=== PATIENT | male | born 1955 | race Caucasian/White ===

== ENCOUNTER 2016-11-08 18:17 | Emergency (ER) | payer BC ==
[2016-11-08] MEDS ORDERED: METHYLPREDNISOLONE ACETATE 80 MG/ML VIAL IM ONE (18:37)
[2016-11-08] MEDS ORDERED: ALBUTEROL SULFATE 2.5 MG/0.5 ML VIAL.NEB IH ONE ×2 (18:37→18:38)
[2016-11-08] MEDS ORDERED: METHYLPREDNISOLONE ACETATE 80 MG/ML VIAL ONE (18:38)
--- OUTSIDE RECORDS SUMMARY | 2016-11-08 18:52 | XMS REPORT | Continuity of Care Document ---
:1955 Author Organization [facility] ([facility]) Address [address] [place] [address] Phone [phone] Care Team Providers Name Role Phone Lana Tapia Primary Care Provider [phone] Source Comments This disclosure is being made pursuant to the Care Everywhere program, applicable federal and state laws, and may not contain all informaitonavailable regarding this patient.[facility] ([facility]) Active Allergies and Adverse Reactions Not on File Current Medications Not on file Active Problems Not on file Social History Tobacco Use Types Packs/Day Years Used Date Never Assessed Plan of Care Health Maintenance Due Date Last Done Comments HCV Screening 1955 Hepatitis B Vaccine (1 of 3 - Primary Series) 1955 Tdap Vaccine 12/25/1967 Lipid Disorder Screening 1974 MMR Vaccine 1974 Td Vaccine 1974 Colonoscopy 2006 Prostate Cancer Screening 2006 Influenza Vaccine: Seasonal (#1) 01/14/2016 Results from Last 3 Months Not on file
[2016-11-08 19:22] VITALS: BP 121/89
--- NOTE | 2016-12-25 15:41 | ERNOTE ---
Dyspnea - Date Date of Service: 12/25/16 - General Presenting Symptoms: shortness of breath, difficulty of breathing Time Seen by Provider: 11/08/16 18:31 Source: patient, RN notes reviewed Exam Limitations: no limitations, clinical condition - Immun/Allergies/Home Medications Immunizations: IMMUNIZATION HX Immunizations Up to Date Yes History of Influenza Vaccine Yes Allergies/Adverse Reactions: Allergies No Known Allergies Allergy (Verified 11/15/13 00:03) Home Medications: HOME MEDICATIONS DULoxetine HCL [Cymbalta] 30 mg PO DAILY 06/23/13 [Last Taken Unknown] Hydroxyzine HCl 50 mg PO Q4H PRN 06/23/13 [Last Taken Unknown] Hyoscyamine Sulfate [Levsin] 0.375 mg PO BID 06/23/13 [Last Taken Unknown] Simvastatin 20 mg PO HS 06/23/13 [Last Taken Unknown] traMADol HCL [Tramadol HCl] 50 mg PO Q6H PRN 06/23/13 [Last Taken Unknown] Combivent Respimat Inhal [place] 10/09/14 [Last Taken Unknown] Ipratropium/Albuterol Sulfate [Combivent Respimat Inhal [place]] 1 puff IH QID #1 inhaler 11/08/16 [Last Taken Unknown] predniSONE [Prednisone] 1 tab PO TID #15 tab 11/08/16 [Last Taken Unknown] - History of Present Illness Severity: moderate 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: Reports: upper resp illness Frequency of episodes: Reports: frequent episodes Modifying Factors - (Improves): Reports: activity Modifying Factors (Worsens): Reports: activity Associated Symptoms-Dyspnea: Reports: fever/chills Review of Systems - Review of Systems Constitutional: Present: recent illness, fever EYE: Present: no symptoms reported ENT: Present: no symptoms reported Respiratory: Present: shortness of breath, cough Cardiology: Present: no symptoms reported Gastrointestinal/Abdominal: Present: no symptoms reported Genitourinary: Present: no symptoms reported Musculoskeletal: Present: no symptoms reported Skin: Present: no symptoms reported Neurological: Present: no symptoms reported Endocrine: Present: no symptoms reported Hematologic/Lymphatic: Present: no symptoms reported - Patient's Past Medical History Patient History - Medical: Anxiety, Arthritis, Chronic Pain, Fibromyalgia Patient History - Cardiac/Respiratory: COPD, Hyperlipidemia Patient History - Cancer: No Hx of Cancer Patient History - Surgical Procedures: Back Surgery, Cholecystectomy, Other Patient History - Other: None - Family History Family History:: no untoward family reactions to anesthesia, no family history of clotting disorders - Social History Living Situations: spouse Abuse History: No History of abuse Psych History: No pertinent hx, Hx of Anxiety Have you smoked in the past 12 months: Yes Do you dip or chew tobacco: No Alcohol Use: heavy Drug Use: none - Immunizations Immunizations Up to Date: Yes History of Influenza Vaccine: Yes Physical Exam - Physical Exam General Appearance: Present: alert, mild distress, anxious Head Exam: Present: normal inspection, no evidence of injury Eye Exam: Normal inspection: bilateral, PERRL: bilateral, EOMI: bilateral Ears, Nose, Throat: Present: normal ENT inspection Neck: Present: normal inspection, nontender Respiratory: Present: decreased breath sounds, rales, rhonchi, wheezing Cardiovascular/Chest: Present: regular rate, rhythm, no murmur, normal peripheral pulses Peripheral Pulses: N=norm/S=strong/W=weak/B=bound/A=absent: Carotid (R): Normal , Carotid (L): Normal, Radial (R): Normal, Radial (L): Normal, Femoral (R): Normal, Femoral (L): Normal, Dorsalis-pedis (R): Normal Gastrointestinal/Abdominal: Present: normal bowel sounds, nontender, nondistended, soft Male Genitals Exam: Present: normal genitalia Back Exam: Present: normal inspection, normal range of motion, no CVA tenderness Extremity Exam: Present: normal inspection, non-tender, normal range of motion, no edema Neurological Exam: Present: alert, oriented, normal mood/affect, no motor/ sensory deficits DTR: N=norm/NB=norm/brisk/A=abs/DD=dull/dimin/HC=hyperactive: Bicep (R): Normal , Bicep (L): Normal, Tricep (R): Normal, Tricep (L): Normal, Knee (R): Normal, Knee (L): Normal, Ankle (R): Normal, Ankle (L): Normal Skin Exam: Present: normal color, warm/dry Lymphatic Exam: Present: no adenopathy ED Progress - Results and Orders Patient's Lab Results:: I have reviewed the patient's lab results. - Vital Signs Patient's Vital Signs:: I have reviewed the patient's vital signs. - EKG EKG: other - copd exacerbation - Progress/Reassessment Chief Complaint: Dyspnea - Transfer of Care Expected Disposition: Discharge Departure Clinical Impression: COPD exacerbation - Departure Disposition: Home self-care Condition: Fair Instructions: Chronic Obstructive Pulmonary Disease Exacerbation, [id number] Referrals: Uvaldo Patel MD [Primary Care Provider] - Prescriptions: Ipratropium/Albuterol Sulfate [Combivent Respimat Inhal [place]] 1 puff IH QID #1 inhaler predniSONE [Prednisone] 1 tab PO TID #15 tab
== END 2016-11-08 19:00 | disposition home or self-care (01) ==
LOC: ER 18:17
DX: J44.1 Chronic obstructive pulmonary disease with (acute) exacerbation (principal); Z72.0 Tobacco use

== ENCOUNTER 2016-11-10 03:31 | Emergency (ER) | payer BC ==
[2016-11-10] MEDS ORDERED: ALBUTEROL SULFATE/IPRATROPIUM 3 ML NEBU IH ONE ×2 (03:43→03:47)
[2016-11-10] MEDS ORDERED: predniSONE 20 MG TABLET PO ONE (03:44)
--- NOTE | 2016-11-10 03:46 | ERNOTE ---
Dyspnea - Date Date of Service: 11/10/16 - General Presenting Symptoms: shortness of breath Source: patient, family Exam Limitations: no limitations - Immun/Allergies/Home Medications Immunizations: IMMUNIZATION HX Immunizations Up to Date Yes History of Influenza Vaccine Yes Allergies/Adverse Reactions: Allergies No Known Allergies Allergy (Verified 11/15/13 00:03) Home Medications: HOME MEDICATIONS DULoxetine HCL [Cymbalta] 30 mg PO DAILY 06/23/13 [Last Taken Unknown] Hydroxyzine HCl 50 mg PO Q4H PRN 06/23/13 [Last Taken Unknown] Hyoscyamine Sulfate [Levsin] 0.375 mg PO BID 06/23/13 [Last Taken Unknown] Simvastatin 20 mg PO HS 06/23/13 [Last Taken Unknown] traMADol HCL [Tramadol HCl] 50 mg PO Q6H PRN 06/23/13 [Last Taken Unknown] Combivent Respimat Inhal [place] 10/09/14 [Last Taken Unknown] Ipratropium/Albuterol Sulfate [Combivent Respimat Inhal [place]] 1 puff IH QID #1 inhaler 11/08/16 [Last Taken Unknown] predniSONE [Prednisone] 1 tab PO TID #15 tab 11/08/16 [Last Taken Unknown] - History of Present Illness Narrative: Patient evaluated at this emergency room for COPD exacerbation. He was placed on hand-held inhalers and oral steroids but is felt to pick these up to date. Patient has continued to smoke despite his COPD exacerbation and has noted increasing shortness of breath especially today. Patient denies associated fever or chills. He denies chest pain, diaphoresis, radiating to jaw arm or back pain nor nausea vomiting. 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 Frequency of episodes: Reports: occassional episodes Modifying Factors - (Improves): Reports: rest, other - patient does not have medications at home to help his condition Modifying Factors (Worsens): Reports: activity Associated Symptoms-Dyspnea: Reports: wheezing Prior Treatment: Reports: recently seen, treated by physician Review of Systems - Review of Systems Constitutional: Present: no symptoms reported EYE: Present: no symptoms reported ENT: Present: no symptoms reported Respiratory: Present: See HPI, shortness of breath, wheezing Cardiology: Present: no symptoms reported Gastrointestinal/Abdominal: Present: no symptoms reported Genitourinary: Present: no symptoms reported Musculoskeletal: Present: no symptoms reported Skin: Present: no symptoms reported Neurological: Present: no symptoms reported Endocrine: Present: no symptoms reported Hematologic/Lymphatic: Present: no symptoms reported Psych: Present: no symptoms reported - Mr. Gómez is getting better - Patient's Past Medical History Patient History - Medical: Anxiety, Arthritis, Chronic Pain, Fibromyalgia Patient History - Cardiac/Respiratory: COPD, Hyperlipidemia Patient History - Cancer: No Hx of Cancer Patient History - Surgical Procedures: Back Surgery, Cholecystectomy, Other Patient History - Other: None - Social History Living Situations: spouse Abuse History: No History of abuse Psych History: No pertinent hx, Hx of Anxiety Smoking Status: Current every day smoker Have you smoked in the past 12 months: Yes Do you dip or chew tobacco: No Alcohol Use: heavy Drug Use: none - Immunizations Immunizations Up to Date: Yes History of Influenza Vaccine: Yes Physical Exam - Physical Exam General Appearance: Present: wd/wn, alert, moderate distress Eye Exam: Normal inspection: bilateral - normal ophthalmologic exam, PERRL: bilateral, EOMI: bilateral Ears, Nose, Throat: Present: normal ENT inspection, normal pharynx Neck: Present: normal inspection, nontender Respiratory: Present: no accessory muscle use, decreased breath sounds, expiration (prolonged), rales, wheezing Cardiovascular/Chest: Present: regular rate, rhythm, no murmur, normal peripheral pulses Peripheral Pulses: N=norm/S=strong/W=weak/B=bound/A=absent: Carotid (R): Normal , Carotid (L): Normal, Radial (R): Normal, Radial (L): Normal Gastrointestinal/Abdominal: Present: normal bowel sounds, nontender, nondistended, soft, no organomegaly Rectal Exam: Present: deferred Back Exam: Present: normal inspection, normal range of motion, no CVA tenderness , no vertebral tenderness Extremity Exam: Present: normal inspection, non-tender - right shoulder pain with discharge O I note I've examined, normal range of motion, no edema Neurological Exam: Present: alert, oriented, normal mood/affect, no motor/ sensory deficits - against medical history of a foreign body initially have like dendrites Skin Exam: Present: normal color, warm/dry Lymphatic Exam: Present: no adenopathy ED Progress - Vital Signs Patient's Vital Signs:: I have reviewed the patient's vital signs. Vital Signs: Vital Signs 11/10/16 03:34 Temperature 36.4 C L Pulse Rate 67 Respiratory 22 H Rate Blood Pressure 189/107 O2 Sat by Pulse 98 Oximetry - X-Ray X-Ray #1 X-Ray: chest - no edema and/or consolidation noted. This is a preliminary read by myself. Interpretation: Interp. by me - Progress/Reassessment Chief Complaint: Dyspnea Departure Clinical Impression: Bronchitis, COPD exacerbation - Departure Disposition: Home self-care Additional Instructions: Will add doxycycline twice daily 10 days for suspected underlying bronchitis and aggravating factor. Please stop tobacco at this point as it will greatly aggravate her condition and your lung disease in the future. Please fill hand- held inhalers prescription previously provided to you. Referrals: Uvaldo Patel MD [Primary Care Provider] -
[2016-11-10] MEDS ORDERED: predniSONE 20 MG TABLET ONE (03:47)
--- OUTSIDE RECORDS SUMMARY | 2016-11-10 04:39 | XMS REPORT | Continuity of Care Document ---
:1955 Author Organization [facility] ([facility]) Address [address] [place] [address] Phone [phone] Care Team Providers Name Role Phone Lana Tapia Primary Care Provider [phone] Source Comments This disclosure is being made pursuant to the Care Everywhere program, applicable federal and state laws, and may not contain all informaitonavailable regarding this patient.[facility] ([facility]) Active Allergies and Adverse Reactions Not on [...]
[2016-11-10] MEDS ORDERED: DOXYCYCLINE HYCLATE 100 MG TABLET PO ONE (04:49)
[2016-11-10] MEDS ORDERED: DOXYCYCLINE HYCLATE 100 MG TABLET ONE (05:09)
[2016-11-10 05:12] VITALS: BP 150/80
== END 2016-11-10 05:20 | disposition home or self-care (01) ==
LOC: ER 03:31
DX: J40 Bronchitis, not specified as acute or chronic (principal); J44.1 Chronic obstructive pulmonary disease with (acute) exacerbation; F17.200 Nicotine dependence, unspecified, uncomplicated

== ENCOUNTER 2017-03-10 22:35 | Emergency (ER) | payer BC ==
[2017-03-10] MEDS ORDERED: ALBUTEROL SULFATE/IPRATROPIUM 3 ML NEBU IH ONE ×2 (23:04→23:10)
[2017-03-10] MEDS ORDERED: METHYLPREDNISOLONE SOD SUCC/PF 40 MG/ML VIAL IV ONE (23:05)
--- NOTE | 2017-03-10 23:08 | ERNOTE ---
Dyspnea - General Presenting Symptoms: shortness of breath Time Seen by Provider: 03/10/17 23:00 Source: patient Exam Limitations: no limitations - Immun/Allergies/Home Medications Immunizations: IMMUNIZATION HX Immunizations Up to Date Yes History of Influenza Vaccine No Hx Pneumococcal Vaccination Yes Allergies/Adverse Reactions: Allergies No Known Allergies Allergy (Verified 11/15/13 00:03) Home Medications: HOME MEDICATIONS DULoxetine HCL [Cymbalta] 30 mg PO DAILY 06/23/13 [Last Taken Unknown] Hydroxyzine HCl 50 mg PO Q4H PRN 06/23/13 [Last Taken Unknown] Hyoscyamine Sulfate [Levsin] 0.375 mg PO BID 06/23/13 [Last Taken Unknown] Simvastatin 20 mg PO HS 06/23/13 [Last Taken Unknown] traMADol HCL [Tramadol HCl] 50 mg PO Q6H PRN 06/23/13 [Last Taken Unknown] Combivent Respimat Inhal [place] 10/09/14 [Last Taken Unknown] Ipratropium/Albuterol Sulfate [Combivent Respimat Inhal [place]] 1 puff IH QID #1 inhaler 11/08/16 [Last Taken Unknown] Methylprednisolone [Medrol Dosepak] 4 mg PO DAILY #21 tab.ds.pk 03/11/17 [Last Taken Unknown] - History of Present Illness Narrative: Pt uses combivent BID daily. He has been more short of breath lately but denies increase in sputum or change in color or consistency Severity: moderate, severe 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: Reports: out of meds Frequency of episodes: Reports: frequent episodes Review of Systems - Review of Systems Constitutional: Absent: recent illness, fever Respiratory: Present: See HPI Cardiology: Absent: chest pain - Patient's Past Medical History Patient History - Medical: Anxiety, Arthritis, Chronic Pain, Fibromyalgia Patient History - Cardiac/Respiratory: COPD, Hyperlipidemia Patient History - Cancer: No Hx of Cancer Patient History - Surgical Procedures: Back Surgery, Cholecystectomy, Other, Orthopedic Patient History - Other: None - Social History Living Situations: spouse Abuse History: No History of abuse Psych History: No pertinent hx, Hx of Anxiety Smoking Status: Current every day smoker Have you smoked in the past 12 months: Yes Do you dip or chew tobacco: No Alcohol Use: heavy Drug Use: none - Immunizations Immunizations Up to Date: Yes Hx Pneumococcal Vaccination: Yes History of Influenza Vaccine: No Physical Exam - Physical Exam General Appearance: Present: wd/wn, alert, mild distress Head Exam: Present: normal inspection, no evidence of injury Eye Exam: Normal inspection: bilateral Neck: Present: normal inspection, supple Respiratory: Present: respiratory distress - mild, decreased breath sounds - throughout, wheezing - fine Cardiovascular/Chest: Present: regular rate, rhythm, no murmur, normal peripheral pulses Back Exam: Present: normal inspection, normal range of motion Extremity Exam: Present: normal inspection, no edema Neurological Exam: Present: alert, oriented, normal mood/affect, no motor/ sensory deficits Skin Exam: Present: normal color, warm/dry Lymphatic Exam: Present: no adenopathy ED Progress - Results and Orders Patient's Lab Results:: I have reviewed the patient's lab results. Results and Orders: Laboratory Tests 03/10/17 23:15 WBC 8.8 Hgb 15.3 Hct 44.7 Plt Count 330 - Vital Signs Patient's Vital Signs:: I have reviewed the patient's vital signs. Vital Signs: Vital Signs 03/10/17 22:40 Temperature 36.6 C Pulse Rate 94 Respiratory 18 Rate Blood Pressure 187/83 O2 Sat by Pulse 96 Oximetry - X-Ray X-Ray #1 X-Ray: chest Interpretation: Interp. by me X-ray Comments: mild hyperinflation, no infiltrate or effusion. - Progress/Reassessment Chief Complaint: Dyspnea Progress:: Improved Progress Note-Subjective: 03/11/17 00:07 Pt feels much better since nebulized treatment. Still a few low wheezes present. Will give another duoneb and D/C. Departure Clinical Impression: COPD exacerbation - Departure Disposition: Home Follow Up Needed Condition: Good Instructions: Chronic Obstructive Pulmonary Disease Exacerbation, [id number] Additional Instructions: Refill your inhaler in the morning as use as usual. Take prescription as directed. Follow up with your primary care doctor as needed. Prescriptions: Methylprednisolone [Medrol Dosepak] 4 mg PO DAILY #21 tab.ds.pk
[2017-03-10] MEDS ORDERED: METHYLPREDNISOLONE SOD SUCC/PF 40 MG/ML VIAL ONE (23:09)
[2017-03-10 23:20] LABS: Hematocrit 44.7 % (42.0-52.0); Hemoglobin 15.3 gm/dL (13.5-18.0); Mean Cell Volume 93.1 fl (78-100); Mean Corpuscular Hemoglobin 31.9 pg (27-31); Mean Corpuscular Hgb Conc 34.2 g/dl (32-36); Mean Platelet Volume 8.9 fl (6.0-9.5); Neutrophil # 4.1 K/mm3 (1.3-6.0); Neutrophil % 46.5 % (42-75.0); Platelet Count 330 K/mm3 (150-450); Red Cell Distribution Width 11.8 % (11.5-14.0); White Blood Count 8.8 K/mm3 (4.0-10.5)
[2017-03-11] MEDS ORDERED: ALBUTEROL SULFATE/IPRATROPIUM 3 ML NEBU IH ONE ×2 (00:02→00:10)
[2017-03-11 00:28] VITALS: BP 131/82
== END 2017-03-11 00:25 | disposition home or self-care (01) ==
LOC: ER 22:35
DX: J44.1 Chronic obstructive pulmonary disease with (acute) exacerbation (principal); F17.200 Nicotine dependence, unspecified, uncomplicated

== ENCOUNTER 2018-09-06 03:42 | Inpatient (IN) ==
[2018-09-06] MEDS ORDERED: ALBUTEROL SULFATE/IPRATROPIUM 3 ML NEBU IH ONE (04:19)
[2018-09-06] MEDS ORDERED: cefTRIAXone SODIUM 1,000 MG/100 ML BAG IV ONE (04:34)
[2018-09-06 04:40] LABS: Hematocrit 40.7 % (42.0-52.0); Mean Cell Volume 101.2 fl (78-100); Mean Corpuscular Hemoglobin 32.3 pg (27-31); Mean Corpuscular Hgb Conc 31.9 g/dl (32-36); Mean Platelet Volume 9.1 fl (8-11.3); Neutrophil # 9.8 K/mm3 (1.3-6.0); Neutrophil % 86.5 % (42-75.0); Platelet Count 225 K/mm3 (150-450); Red Blood Count 4.02 M/mm3 (4.7-6.0); Red Cell Distribution Width 12.9 % (11.5-14.0); White Blood Count 11.3 K/mm3 (4.0-10.5)
--- NOTE | 2018-09-06 04:42 | ERNOTE ---
Dyspnea - Date Date of Service: 09/06/18 - General Presenting Symptoms: shortness of breath, difficulty of breathing, wheezing Time Seen by Provider: 09/06/18 04:12 Source: patient, family, EMS, RN notes reviewed, old records Exam Limitations: clinical condition, other - Immun/Allergies/Home Medications Immunizations: IMMUNIZATION HX Immunizations Up to Date Yes History of Influenza Vaccine Yes Hx Pneumococcal Vaccination Yes Allergies/Adverse Reactions: Allergies No Known Allergies Allergy (Verified 09/06/18 10:01) Home Medications: HOME MEDICATIONS DULoxetine HCL [Cymbalta] 30 mg PO DAILY 06/23/13 [Last Taken Unknown] Hydroxyzine HCl 50 mg PO Q4H PRN 06/23/13 [Last Taken Unknown] traMADol HCL [Ultram] 50 mg PO QID PRN 07/25/18 [Last Taken Unknown] Albuterol Sulfate [Proair Hfa] 8.5 gm INHALATION Q6H PRN 09/06/18 [Last Taken Unknown] Pantoprazole Sodium 20 mg PO DAILY 09/06/18 [Last Taken Unknown] Terazosin HCl 5 mg PO HS 09/06/18 [Last Taken Unknown] Umeclidinium Brm/Vilanterol Tr [Anoro Ellipta 62.5-25 Mcg INH] 1 ea INHALATION DAILY 09/06/18 [Last Taken Unknown] Albuterol Sulfate/Ipratropium [Duoneb 2.5-0.5MG/3ML Soln] 3 ml INHALATION BID PRN #1 nebu 09/10/18 [Last Taken Unknown] Levofloxacin [Levaquin] 750 mg PO DAILY #3 tab 09/10/18 [Last Taken Unknown] predniSONE [Prednisone] 10 mg PO DAILY #20 tab.ds.pk 09/10/18 [Last Taken Unknown] - History of Present Illness Narrative: The patient is a 62-year-old male who is brought to the emergency department by EMS after he developed progressively increasing shortness of breath, associated with severe paroxysms of coughing. EMS found his oxygen saturation to be in the high 70% to low 80% on room air, when they first arrived at the patient's home. The patient had just gotten a nebulizer machine a few hours earlier, on Thursday morning, which had been prescribed by me when he came to the emergency department yesterday, complaining of cough and shortness of breath. He was so short of breath, and so hypoxic that he was not able to provide any reliable history to EMS personnel. Yesterday, the patient and his had bitterly complained that they had "never been able to get a nebulizer machine, despite several different doctors (ER, PCP, etc.) writing prescriptions for us." They seem to blame [facility] for this, but it sounds like there has just been bad communication persisting on multiple levels (between the patient, his , the physicians writing the prescriptions, and [facility]). So, I surveyed some of the administrative nursing staff here at [facility] yesterday, and they said that if I provided the patient with a written prescription that they could carry into [facility] on Thursday morning (yesterday a.m.) they could get a nebulizer machine for $40, and picker tender helper DuoNeb medication and all of the attendant supplies to do nebulizer treatments at home. Earlier today, the patient was able to picker tender helper a nebulizer machine and DuoNeb ampules at [facility], and the patient has been using DuoNeb by nebulizer all day today. Unfortunately, patient's respiratory status deteriorated to the point where he almost collapsed on his front porch "while trying to get a breath of fresh air" and his family had to call 911 to transport him to the hospital's emergency department for evaluation. Severity: severe Treatment SECURITY ATTENDANT: by patient, paramedics, oxygen, albuterol 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: Reports: upper resp illness Frequency of episodes: Reports: occassional episodes Modifying Factors - (Improves): Reports: albuterol, oxygen Modifying Factors (Worsens): Reports: activity, coughing, lying down Associated Symptoms-Dyspnea: Reports: chest pain/discomfort, cough, wheezing, weakness, anxiety Prior Treatment: Reports: recently seen, treated by physician. Denies: currently on antibiotics Review of Systems - Review of Systems Constitutional: Present: recent illness, weakness, fatigue, malaise EYE: Present: no symptoms reported ENT: Present: nose congestion, sore throat Respiratory: Present: See HPI, shortness of breath, cough, orthopnea, wheezing Cardiology: Present: chest pain Gastrointestinal/Abdominal: Present: See HPI Genitourinary: Present: no symptoms reported Musculoskeletal: Present: no symptoms reported Skin: Present: no symptoms reported Neurological: Present: anxiety, dizziness/light-headedness Endocrine: Present: no symptoms reported Hematologic/Lymphatic: Present: no symptoms reported Psych: Present: anxiety Medical History (Updated 09/10/18 @ 09:53 by Ottoniel Anglin MD) COPD (chronic obstructive pulmonary disease) Surgical History: Surgical History (Updated 09/10/18 @ 09:53 by Ottoniel Anglin MD) History of cholecystectomy History of fusion of cervical spine History of lumbar surgery History of shoulder surgery Family History: Family History (Updated 09/04/18 @ 22:32 by Luiza Garcia RN) Other No pertinent family history Social History: Preferred Language Palestinian Smoking Status Current every day smoker Abuse History No History of abuse Psych History No pertinent hx,Hx of Anxiety Alcohol Use heavy Drug Use none No Social History Section defined Physical Exam - Physical Exam General Appearance: Present: alert, severe distress, anxious, lethargic Head Exam: Present: normal inspection, no evidence of injury, no tenderness w palpation. Absent: active bleeding, Stover's Sign, contusions, ecchymosis, raccoon eyes, swelling, tenderness Eye Exam: Normal inspection: bilateral, PERRL: bilateral, EOMI: bilateral Ears, Nose, Throat: Present: normal except -, nasal congestion, pharyngeal erythema, dry mucous membranes. Absent: tonsillar exudate Neck: Present: normal inspection, nontender, supple, full range of motion. Absent: lymphadenopathy (R), lymphadenopathy (L) Respiratory: Present: chest tenderness, respiratory distress, accessory muscle use, decreased breath sounds, expiration (prolonged), rales, rhonchi, wheezing. Absent: stridor, pleural rub Cardiovascular/Chest: Present: regular rate, rhythm, no murmur, normal peripheral pulses Gastrointestinal/Abdominal: Present: normal bowel sounds, nontender, nondistended, soft. Absent: distended Back Exam: Present: normal inspection, normal range of motion, no CVA tenderness, no vertebral tenderness Extremity Exam: Present: normal inspection, normal except -, non-tender, normal range of motion, no edema Neurological Exam: Present: oriented, no motor/sensory deficits, 3d artist II-XII nml as tested, other. Absent: normal mood/affect, facial droop Skin Exam: Present: cool/dry, pallor. Absent: skin rash Lymphatic Exam: Present: no adenopathy Progress - Results and Orders Patient's Lab Results:: I have reviewed the patient's lab results. - Vital Signs Patient's Vital Signs:: I have reviewed the patient's vital signs. Vital Signs: Vital Signs 09/06/18 03:46 Temperature 37.0 C Pulse Rate 127 H Respiratory Rate 21 H Blood Pressure 130/63 O2 Sat by Pulse Oximetry 99 - EKG EKG #1 EKG: supraventricular tachycardia, nonspecific ST T wave changes EKG read: Reviewed by me EKG Comments: EKG done shortly after admission to the emergency department showed a sinus tachycardia with rate of 129 no evidence of any ectopy there is some diffuse nonspecific ST-T and T wave changes that are not diagnostic of ischemia. - X-Ray X-Ray #1 X-Ray: chest Interpretation: Reviewed by me X-ray Comments: 1 view AP portable chest shows hyperinflation of the lungs with flattening of the hemidiaphragms, both consistent with air trapping, with some haziness at the left lower heart border, which appears to be consistent with a left lower lobe pneumonitis. There is also some platelike atelectasis seen at the right lower hemidiaphragm. - Progress/Reassessment Chief Complaint: Dyspnea Progress:: Improved Plan - Plan Plan: The patient arrived in the emergency department by EMS in acute respiratory distress, and appeared to be in impending respiratory failure. I considered putting the patient on BiPAP but because of his khalil and generalized agitation I went ahead with nebulizer treatments as being less invasive and less provocative to his fragile emotional state. The patient improved somewhat, and oxygen saturations were able to be maintained in the 92-95% range with 4 L of nasal cannula or a simple facemask. Early during his stay however he became acutely agitated again, tore off his mask and monitoring leads, sat up and swung his legs over the edge of the bed, appearing as though he wanted to try to get up and walk out of the emergency department. He appeared delirious, not able to focus and not interacting or communicating appropriately at this time. I gave the patient 1 mg of lorazepam IV which calmed him down somewhat, but he was still fairly agitated and attempting to wrestle with his family and ED staff that were trying to keep him on the gurney. I then gave him 1 mg of morphine s ulfate IV and he calmed down considerably, at which point we decided to put him into a reclining Charisse-type chair, rather than trying to keep him on top of the ED gurney, which she had almost fallen off of repea wastedly is. The patient had another outburst of agitation less than an hour later, and I treated this with 2 mg of morphine sulfate IV, which finally got him to settle down and go to sleep. Because of the dramatic deterioration in the patient's condition over the past 24 hours, I was very concerned about the possibility of an acute bronchitis, or early pneumonitis that might be a precursor to sepsis. I gave the patient 1 g (1000 mg) of Rocephin, and 500 mg of azithromycin IV. The patient tolerated both of those antibiotics well. By this time it was almost 7:00 in the morning and I spoke with Dr. Anglin, an rfid specialist who was on-call for unattached hospital admissions. Dr. Agnlin agreed with the patient being admitted, requested he be sent to [facility] with telemetry, and I wrote some holding orders to get the patient transferred to the inpatient setting so that Dr. Anglin could see him, and right the rest of his admitting orders. The patient was in stable and improved condition at the time of his transfer from the ED to the inpatient setting on [facility] with telemetry. Departure Clinical Impression: COPD exacerbation Asthmatic bronchitis with acute exacerbation Qualifiers: Asthma severity: unspecified severity Asthma persistence: unspecified Qualified Code(s): J45.901 - Unspecified asthma with (acute) exacerbation - Departure Disposition: Short Term Hospital Inpatient Condition: Stable
[2018-09-06] MEDS ORDERED: LORazepam 2 MG/ML DISP.SYRIN ONE (04:52)
[2018-09-06] MEDS ORDERED: MORPHINE SULFATE 2 MG/ML DISP.SYRIN ONE (04:57)
[2018-09-06] MEDS ORDERED: ALBUTEROL SULFATE 2.5 MG/0.5 ML VIAL.NEB IH ONE ×2 (04:59→05:01)
[2018-09-06 05:00] LABS: ALT 20 U/L (19-67); AST 21 U/L (0-48); Albumin * 3.4 gm/dl (3.4-5.0); Alkaline Phosphatase * 72 U/L (50-170); BNP * 339 pg/mL (5-175); BUN/Creatinine Ratio 14.5 (9.0-21.6); Bilirubin, Total 0.5 mg/dL (0.0-1.1); Blood Urea Nitrogen 16 mg/dL (6-23); Calcium * 8.8 mg/dL (7.9-10.9); Carbon Dioxide 27.6 mmol/L (24-32.6); Chloride 104 mmol/L (97-106); Glucose * 142 mg/dL (70-110); Potassium 3.6 mmol/L (3.4-4.6); Sodium 142 mmol/L (132-142); Total Protein 6.7 gm/dL (6.2-8.2)
[2018-09-06] MEDS ORDERED: NORMAL SALINE 1,000 ML IV ONE (05:00)
[2018-09-06] MEDS ORDERED: AZITHROMYCIN 500 MG in DEXTROSE 5 % IN WATER 250 ML IV ONE ×2 (05:00)
[2018-09-06 05:11] LABS: Troponin I Less than 0.017 ng/mL (0.00-0.10)
[2018-09-06] MEDS ORDERED: LORazepam 2 MG/ML DISP.SYRIN IV ONE (05:16)
[2018-09-06] MEDS ORDERED: MORPHINE SULFATE 2 MG/ML DISP.SYRIN IV ONE ×2 (05:16→05:57)
[2018-09-06] MEDS ORDERED: ACETAMINOPHEN 1,000 MG/100 ML BTL IV ONE (07:03)
[2018-09-06] MEDS ORDERED: ALBUTEROL SULFATE/IPRATROPIUM 3 ML NEBU IH SCH (08:45)
[2018-09-06] MEDS ORDERED: METHYLPREDNISOLONE SOD SUCC/PF 125 MG/2 ML VIAL IV ONE (08:45)
[2018-09-06] MEDS ORDERED: METHYLPREDNISOLONE SOD SUCC/PF 40 MG/ML VIAL IV SCH ×2 (09:15→15:00)
[2018-09-06] MEDS: NORMAL SALINE 1,000 ML IV PRN ×2 (09:45→18:25)
[2018-09-06] MEDS: ALBUTEROL SULFATE/IPRATROPIUM 3 ML NEBU IH SCH ×3 (10:13→18:11)
[2018-09-06] MEDS: ALBUTEROL SULFATE 2.5 MG/0.5 ML VIAL.NEB IH PRN ×2 (10:15→13:15)
[2018-09-06] MEDS: METHYLPREDNISOLONE SOD SUCC/PF 40 MG/ML VIAL IV SCH ×3 (10:15→21:05)
--- NOTE | 2018-09-06 17:11 | HP ---
Chief Complaint - Chief Complaint Date of Service: 09/06/18 Time of Service: 16:58 Chief Complaint: shortness of breath History of Present Illness: Ghulam Stone, is a 62 year old white male with PMH of COPD. Cervical spone fusion, who admited on 09/06/2018 for increase shortness of breath. For the last 1 week, he had been having cough, productive of yellowish phlegm, associated with wheezing and shortness of breath. He thinks he could have had fever and chills but is not documented. He was seen in our ED and was given decadron and discharged on Duoneb. EMS was called today because of worsening of his SOB, wheezing and coughing. He had been having chest wall pain increased with coughing. EMS documented O2 saturations in the 70's to low 80's on room air ewa they got to his house. He was so SOB that he could not finish his sentences and was not able to provide a history to the EMS. His WBC was 11.2, and his troponin was less than 0.017. His EKG showed sinus tachycardia with nonspecific ST-T wave changes. His CXR showed diffuse hyperinflation with flattening of the hemidiaphragm. He wears O2 3 L only at night but does not wear it in the daytime as he goes to work at [employer]. He says this is 1st admission for the year but has had 2-3 admissions a year in the past. He denies intubation in the past. The patient was put on o2 and started on breathing treatment, IV antibiotics and IV solumedrol. He was admitted for further treatment. Medical History (Last Reviewed 09/06/18 @ 10:01 by Marzena Tatum RN) COPD (chronic obstructive pulmonary disease) Surgical History: Surgical History (Last Reviewed 09/06/18 @ 10:01 by Marzena Tatum RN) History of cholecystectomy History of fusion of cervical spine History of lumbar surgery History of shoulder surgery Family History: Family History (Last Reviewed 09/06/18 @ 10:01 by Marzena Tatum RN) Other No pertinent family history Social History: Patient Lives/Resources Home Utilized Preferred Language Ethiopian Smoking Status Current every day smoker Have you smoked in the past 12 Yes months Do you dip or chew tobacco No Abuse History No History of abuse Psych History No pertinent hx,Hx of Anxiety Alcohol Use heavy Drug Use none No Social History Section defined Review Of Systems (GEN) - Review of Systems Generalized/Overall Review: Present: Chills - not sure, Fever - not sure EENTM: Absent: Blurred Vision Respiratory: Present: Cough, Shortness of Breath, Wheezing Cardiac: Present: Chest Pain. Absent: Edema, Palpitations Abdominal: Absent: Nausea, Vomiting Genitourinary: Absent: Urgency, Frequency Musculoskeletal: Present: Joint Pain Neurological: Absent: Headache, Anxiety, Depressed Skin: Absent: Rash Endocrine: Absent: Intolerance to Cold, Intolerance to Heat Immunizations: IMMUNIZATION HX Immunizations Up to Date Yes History of Influenza Vaccine Yes Hx Pneumococcal Vaccination Yes Allergies/Adverse Reactions: Allergies Allergy/AdvReac Type Severity Reaction Status Date / Time No Known Allergies Allergy Verified 09/06/18 10:01 Home Medications: HOME MEDICATIONS DULoxetine HCL [Cymbalta] 30 mg PO DAILY 06/23/13 [Last Taken Unknown] Hydroxyzine HCl 50 mg PO Q4H PRN 06/23/13 [Last Taken Unknown] traMADol HCL [Ultram] 50 mg PO QID PRN 07/25/18 [Last Taken Unknown] Albuterol Sulfate [Proair Hfa] 8.5 gm INHALATION Q6H PRN 09/06/18 [Last Taken Unknown] Fluticasone/Salmeterol [Advair Hfa 230-21 Mcg Inhaler] 8 gm INHALATION BID 09/06/18 [Last Taken Unknown] Pantoprazole Sodium 20 mg PO DAILY 09/06/18 [Last Taken Unknown] Terazosin HCl 5 mg PO HS 09/06/18 [Last Taken Unknown] Umeclidinium Brm/Vilanterol Tr [Anoro Ellipta 62.5-25 Mcg INH] 1 ea INHALATION DAILY 09/06/18 [Last Taken Unknown] Exam - Exam Vital Signs: Vital Signs - Last Taken Temp 37.0 C 09/06/18 15:56 Pulse 207 H 09/06/18 15:56 Resp 20 09/06/18 15:56 BP 138/79 09/06/18 15:56 Pulse Ox 95 09/06/18 15:56 Constitutional: Present: Alert, Oriented x3, Cooperative ENT Exam: Present: hearing grossly normal Eye Exam: bilateral eye: normal inspection, PERRL, EOMI Neck: Present: supple Respiratory: Present: decreased breath sounds, wheezing. Absent: No rales Cardiovascular/Chest: Present: regular rate, rhythm, no JVD, no murmur Abdomen: Present: Normal bowel sounds, soft, nontender, nondistended Extremity: Present: no pedal edema, no calf tenderness Diagnostic Studies: Abnormal Lab Results 09/06/18 09/06/18 09/06/18 Range/Units 04: 04:35 04:35 WBC 11.3 H (4.0-10.5) K/mm3 RBC 4.02 L (4.7-6.0) M/mm3 Hgb 13.0 L (13.5-18.0) gm/dL Hct 40.7 L (42.0-52.0) % MCV 101.2 H (78-100) fl MCH 32.3 H (27-31) pg MCHC 31.9 L (32-36) g/dl Neutrophils % 86.5 H (42-75.0) % Lymphocytes % 5.9 L (20-51) % Neutrophils # 9.8 H (1.3-6.0) K/mm3 Lymphocytes # 0.66 L (1.5-3.5) k/mm3 pO2 64.2 L (83.0-108.0) mmHg Total CO2 24.9 H (19.0-24.0) mmol/L ABG O2 Sat (Measured) 92.2 L (94.0-98.0) % Plasma Sodium 143 H (130-142) mmol/L Anion Gap 14.0 H (6.8-13.8) mmol/L Random Glucose 142 H D (70-110) mg/dL B-Natriuretic Peptide 339 H (5-175) pg/mL Laboratory Results WBC 11.3 K/mm3 (4.0-10.5) H 09/06/18 04:35 RBC 4.02 M/mm3 (4.7-6.0) L 09/06/18 04:35 Hgb 13.0 gm/dL (13.5-18.0) L 09/06/18 04:35 Hct 40.7 % (42.0-52.0) L 09/06/18 04:35 MCV 101.2 fl (78-100) H 09/06/18 04:35 MCH 32.3 pg (27-31) H 09/06/18 04:35 MCHC 31.9 g/dl (32-36) L 09/06/18 04:35 RDW 12.9 % (11.5-14.0) 09/06/18 04:35 Plt Count 225 K/mm3 (150-450) 09/06/18 04:35 MPV 9.1 fl (8-11.3) 09/06/18 04:35 Immature Gran % (Auto) 0.30 % (0.001-0.429) 09/06/18 04:35 Immature Gran # (Auto) 0.03 K/mm3 (0.000-0.0310) 09/06/18 04:35 Neutrophils % 86.5 % (42-75.0) H 09/06/18 04:35 Lymphocytes % 5.9 % (20-51) L 09/06/18 04:35 Monocytes % 7.0 % (0.0-9) 09/06/18 04:35 Eosinophils % 0.1 % (0.0-3.0) 09/06/18 04:35 Basophils % 0.2 % (0.0-1.0) 09/06/18 04:35 Nucleated RBC % 0.0 k/mm3 (0-1) 09/06/18 04:35 Neutrophils # 9.8 K/mm3 (1.3-6.0) H 09/06/18 04:35 Lymphocytes # 0.66 k/mm3 (1.5-3.5) L 09/06/18 04:35 Monocytes # 0.8 k/mm3 (0.0-1.0) 09/06/18 04:35 Eosinophils # 0.0 k/mm3 (0.0-0.7) 09/06/18 04:35 Absolute Basophils 0.0 k/mm3 (0.0-0.1) 09/06/18 04:35 D-Dimer 0.25 ug/mL (0.19-0.49) 09/06/18 04:35 pCO2 40.9 mmHg (35.0-48.0) 09/06/18 04:19 pO2 64.2 mmHg (83.0-108.0) L 09/06/18 04:19 HCO3 23.7 mmol/L (21.0-28.0) 09/06/18 04:19 Total CO2 24.9 mmol/L (19.0-24.0) H 09/06/18 04:19 Base Excess -1.4 mmol/L (-2.0-3.0) 09/06/18 04:19 ABG pH 7.38 (7.35-7.45) 09/06/18 04:19 ABG O2 Sat (Measured) 92.2 % (94.0-98.0) L 09/06/18 04:19 Sodium 142 mmol/L (132-142) 09/06/18 04:35 Plasma Sodium 143 mmol/L (130-142) H 09/06/18 04:35 Potassium 3.6 mmol/L (3.4-4.6) 09/06/18 04:35 Chloride 104 mmol/L (97-106) 09/06/18 04:35 Carbon Dioxide 27.6 mmol/L (24-32.6) 09/06/18 04:35 Anion Gap 14.0 mmol/L (6.8-13.8) H 09/06/18 04:35 BUN 16 mg/dL (6-23) 09/06/18 04:35 Creatinine 1.10 mg/dL (0.4-1.4) 09/06/18 04:35 Est GFR (Non-Af Amer) 72 mL/min (60-130) D 09/06/18 04:35 BUN/Creatinine Ratio 14.5 (9.0-21.6) 09/06/18 04:35 Random Glucose 142 mg/dL (70-110) H D 09/06/18 04:35 Calcium 8.8 mg/dL (7.9-10.9) 09/06/18 04:35 Calcium Adj for Albumin 9.0 mg/dL (8.4-10.2) 09/06/18 04:35 Total Bilirubin 0.5 mg/dL (0.0-1.1) 09/06/18 04:35 AST 21 U/L (0-48) 09/06/18 04:35 ALT 20 U/L (19-67) 09/06/18 04:35 Alkaline Phosphatase 72 U/L (50-170) 09/06/18 04:35 Troponin I 0.027 ng/mL (0.00-0.10) 09/06/18 10:23 B-Natriuretic Peptide 339 pg/mL (5-175) H 09/06/18 04:35 Total Protein 6.7 gm/dL (6.2-8.2) 09/06/18 04:35 Albumin 3.4 gm/dl (3.4-5.0) 09/06/18 04:35 Influ A H1N1/09 TEM-PCR Not detected (ND) 09/06/18 13:30 Influenza A (H3) PCR Not detected (ND) 09/06/18 13:30 Jenaro Influenza A PCR Not detected (ND) 09/06/18 13:30 Influenza Type B (PCR) Not detected (ND) 09/06/18 13:30 Assessment/Plan - Narrative Narrative: Will continue with is IV Solumedrol, breathing treatments, IV antibiotics bit changed it to IV Levaquin 750 mg q Daily. Will resume his some of his home medications. - Assessment/Plan (1) COPD exacerbation Assessment: continue with IV antibiotics, IV solumedol, breathing treatments and O2. Problem: Acute (2) Bronchitis Assessment: continue with IV solumedrol, breathing treatment, IV antibiotics and O2. Problem: Acute (3) Chronic back pain Problem: Chronic Qualifiers: Back pain location: low back pain (4) Fibromyalgia Problem: Chronic (5) Anxiety and depression Problem: Chronic
[2018-09-06] MEDS: TERAZOSIN HCL 5 MG CAPSULE PO SCH (21:05)
[2018-09-07] MEDS: ALBUTEROL SULFATE/IPRATROPIUM 3 ML NEBU IH SCH ×4 (00:09→18:09)
[2018-09-07] MEDS: NORMAL SALINE 1,000 ML IV PRN (02:32)
[2018-09-07] MEDS: METHYLPREDNISOLONE SOD SUCC/PF 40 MG/ML VIAL IV SCH ×4 (02:32→20:47)
[2018-09-07] MEDS: PANTOPRAZOLE SODIUM 20 MG TABLET.DR PO SCH (07:30)
[2018-09-07] MEDS: DULoxetine HCL 30 MG CAPSULE.SA PO SCH (08:02)
[2018-09-07] MEDS: ENOXAPARIN SODIUM 40 MG/0.4 ML SYRG SC SCH (08:07)
[2018-09-07] MEDS ORDERED: ALBUTEROL SULFATE 200 PUFF INHALER IH PRN (08:26)
[2018-09-07 08:34] LABS: Hematocrit 42.4 % (42.0-52.0); Hemoglobin 13.3 gm/dL (13.5-18.0); Mean Cell Volume 103.2 fl (78-100); Mean Corpuscular Hemoglobin 32.4 pg (27-31); Mean Corpuscular Hgb Conc 31.4 g/dl (32-36); Mean Platelet Volume 10.2 fl (8-11.3); Neutrophil # 9.1 K/mm3 (1.3-6.0); Platelet Count 246 K/mm3 (150-450); Red Blood Count 4.11 M/mm3 (4.7-6.0); Red Cell Distribution Width 12.8 % (11.5-14.0); White Blood Count 9.6 K/mm3 (4.0-10.5)
--- NOTE | 2018-09-07 08:38 | PN ---
Subjective - Date and Time Seen Date: 09/07/18 Time: 08:32 Subjective Narrative: patient is feeling better. still tachycardic and tachypneis and needing 3 L of O2 even during the daytime. he only wears Home O2 at night. Objective - Review of Systems Generalized/Overall Review: Denies: Weakness, Chills, Fever EENTM: Denies: Blurred Vision Respiratory: Reports: Cough, Shortness of Breath, Wheezing Cardiac: Denies: Chest Pain, Edema, Palpitations Abdominal: Denies: Nausea, Vomiting Genitourinary Symptoms: Denies: Urgency, Frequency Musculoskeletal Complaints: Reports: Joint Pain, Muscle Pain Neurological: Reports: Anxiety, Depressed. Denies: Headache Skin: Denies: Rash Endocrine: Denies: Excessive Sweating - Vitals Vitals: Last Vital Signs Temp 36.6 C 09/07/18 08:25 Pulse 102 H 09/07/18 08:25 Resp 20 09/07/18 08:25 BP 116/71 09/07/18 08:25 Pulse Ox 98 09/07/18 08:25 - Exam Constitutional: Present: Alert, Oriented x3, Cooperative, Mild distress ENT Exam: Present: hearing grossly normal Neck: Present: supple Respiratory: Present: decreased breath sounds, wheezing, No rales Cardiovascular/Chest: Present: regular rate, rhythm, no JVD, no murmur, tachycardia Abdomen: Present: Normal bowel sounds, soft, nontender, nondistended Extremity: Present: no pedal edema, no calf tenderness Assessment/Plan - Problems/Diagnosis (1) COPD exacerbation Problem: Acute Narrative: continue with present management (2) Bronchitis Problem: Acute Narrative: continue with present management (3) Chronic back pain Problem: Chronic Qualifiers: Back pain location: low back pain Narrative: contnue with Cymbalta/pain medications (4) Fibromyalgia Problem: Chronic Narrative: continue with cymbalta and pain meds (5) Anxiety and depression Problem: Chronic Narrative: continue with Cymbalta. (6) Acute respiratory failure Problem: Resolved Qualifiers: Respiratory failure complication: hypoxia Qualified Code(s): J96.01 - Acute respiratory failure with hypoxia Narrative: patient was documented to have O2 in the 70's to low 80's, tachypneic and tachycardic.
[2018-09-07 08:50] LABS: BUN/Creatinine Ratio 17.9 (9.0-21.6); Calcium * 8.9 mg/dL (7.9-10.9); Carbon Dioxide 27.9 mmol/L (24-32.6); Estimated Creat Clear 76.3; Potassium 3.9 mmol/L (3.4-4.6)
[2018-09-07] MEDS: LEVOFLOXACIN IN DEXTROSE 5 % 750 MG/150 ML BAG IV SCH (09:06)
[2018-09-07] MEDS: ALBUTEROL SULFATE 2.5 MG/0.5 ML VIAL.NEB IH PRN (18:10)
[2018-09-07] MEDS: TERAZOSIN HCL 5 MG CAPSULE PO SCH (20:46)
[2018-09-08] MEDS: ALBUTEROL SULFATE/IPRATROPIUM 3 ML NEBU IH SCH ×4 (00:08→18:02)
[2018-09-08] MEDS: METHYLPREDNISOLONE SOD SUCC/PF 40 MG/ML VIAL IV SCH ×2 (03:10→08:31)
[2018-09-08] MEDS: PANTOPRAZOLE SODIUM 20 MG TABLET.DR PO SCH (06:46)
[2018-09-08] MEDS: ENOXAPARIN SODIUM 40 MG/0.4 ML SYRG SC SCH (08:29)
[2018-09-08] MEDS: LEVOFLOXACIN IN DEXTROSE 5 % 750 MG/150 ML BAG IV SCH (08:30)
[2018-09-08] MEDS: DULoxetine HCL 30 MG CAPSULE.SA PO SCH (08:32)
--- NOTE | 2018-09-08 09:03 | PN ---
Subjective - Date and Time Seen Date: 09/08/18 Time: 08:59 Subjective Narrative: Feels a liitle bit better. Started weaning orders. Objective - Review of Systems Generalized/Overall Review: Denies: Weakness, Chills, Fever EENTM: Denies: Blurred Vision Respiratory: Reports: Cough, Shortness of Breath, Wheezing Cardiac: Denies: Chest Pain, Edema, Palpitations Abdominal: Denies: Nausea, Vomiting Genitourinary Symptoms: Denies: Urgency, Frequency Musculoskeletal Complaints: Reports: Joint Pain Neurological: Reports: Anxiety. Denies: Headache Skin: Denies: Dryness, Rash Endocrine: Denies: Intolerance to Cold, Intolerance to Heat - Vitals Vitals: Last Vital Signs Temp 36.4 C 09/08/18 03:00 Pulse 98 09/08/18 06:16 Resp 20 09/08/18 06:16 BP 156/94 H 09/08/18 06:00 Pulse Ox 95 09/08/18 08:45 - Exam Constitutional: Present: Alert, Oriented x3, Cooperative ENT Exam: Present: hearing grossly normal Neck: Present: supple Respiratory: Present: decreased breath sounds, wheezing, No rales Cardiovascular/Chest: Present: regular rate, rhythm, no JVD, no murmur Abdomen: Present: Normal bowel sounds, soft, nontender, nondistended Extremity: Present: no pedal edema, no calf tenderness Assessment/Plan Plan Narrative: Continue with breathing treatments and present management. discharge planning. - Problems/Diagnosis (1) COPD exacerbation Problem: Acute Narrative: still wheezy. O2 weaning started. (2) Bronchitis Problem: Acute Narrative: clinically improved. WBC back to normal. (3) Chronic back pain Problem: Chronic Qualifiers: Back pain location: low back pain (4) Fibromyalgia Problem: Chronic (5) Anxiety and depression Problem: Chronic (6) Acute respiratory failure Problem: Resolved Qualifiers: Respiratory failure complication: hypoxia Qualified Code(s): J96.01 - Acute respiratory failure with hypoxia
[2018-09-08] MEDS: METHYLPREDNISOLONE SOD SUCC/PF 125 MG/2 ML VIAL IV SCH ×2 (10:06→17:08)
[2018-09-08] MEDS: ALBUTEROL SULFATE 2.5 MG/0.5 ML VIAL.NEB IH PRN (19:52)
[2018-09-08] MEDS: INSULIN GLARGINE,HUM.REC.ANLOG 100 UNITS/ML VIAL SC SCH (21:30)
[2018-09-08] MEDS: TERAZOSIN HCL 5 MG CAPSULE PO SCH (21:30)
[2018-09-09] MEDS: ALBUTEROL SULFATE/IPRATROPIUM 3 ML NEBU IH SCH ×5 (00:11→17:59)
[2018-09-09] MEDS: METHYLPREDNISOLONE SOD SUCC/PF 125 MG/2 ML VIAL IV SCH ×3 (02:16→17:13)
[2018-09-09] MEDS: PANTOPRAZOLE SODIUM 20 MG TABLET.DR PO SCH (07:14)
[2018-09-09] MEDS: ENOXAPARIN SODIUM 40 MG/0.4 ML SYRG SC SCH (08:50)
[2018-09-09] MEDS: LEVOFLOXACIN IN DEXTROSE 5 % 750 MG/150 ML BAG IV SCH (08:55)
[2018-09-09] MEDS: DULoxetine HCL 30 MG CAPSULE.SA PO SCH (08:57)
--- NOTE | 2018-09-09 10:14 | PN ---
Subjective - Date and Time Seen Date: 09/09/18 Time: 10:09 Subjective Narrative: Patient less wheezy. Had desaturated to 88 % with ambulation but went back to 93% with rest. Objective - Review of Systems Generalized/Overall Review: Denies: Weakness, Chills, Fever EENTM: Denies: Blurred Vision Respiratory: Reports: Cough, Shortness of Breath, Wheezing - occasional Cardiac: Denies: Chest Pain, Edema, Palpitations Abdominal: Denies: Nausea, Vomiting Genitourinary Symptoms: Denies: Itching, Urgency, Frequency Musculoskeletal Complaints: Denies: Joint Pain Neurological: Denies: Headache Skin: Denies: Rash Endocrine: Denies: Intolerance to Cold, Intolerance to Heat, Excessive Sweating - Vitals Vitals: Last Vital Signs Temp 36.7 C 09/09/18 07:12 Pulse 83 09/09/18 07:12 Resp 16 09/09/18 07:12 BP 145/87 09/09/18 07:12 Pulse Ox 96 09/09/18 07:12 - Exam Constitutional: Present: Alert, Oriented x3, Cooperative ENT Exam: Present: hearing grossly normal Neck: Present: supple Respiratory: Present: decreased breath sounds, wheezing - occasional, No rales Cardiovascular/Chest: Present: regular rate, rhythm, no JVD, no murmur Abdomen: Present: Normal bowel sounds, soft, nontender, nondistended Extremity: Present: no pedal edema, no calf tenderness Assessment/Plan - Problems/Diagnosis (1) COPD exacerbation Problem: Acute Narrative: improved significantly. possible discharge tomorrow. (2) Bronchitis Problem: Acute Narrative: will transition to oral on discharge (3) Chronic back pain Problem: Chronic Qualifiers: Back pain location: low back pain (4) Fibromyalgia Problem: Chronic (5) Anxiety and depression Problem: Chronic (6) Acute respiratory failure Problem: Resolved Qualifiers: Respiratory failure complication: hypoxia Qualified Code(s): J96.01 - Acute respiratory failure with hypoxia
[2018-09-09] MEDS: traMADol HCL 50 MG TABLET PO PRN (17:22)
[2018-09-09] MEDS: INSULIN GLARGINE,HUM.REC.ANLOG 100 UNITS/ML VIAL SC SCH (21:35)
[2018-09-09] MEDS: TERAZOSIN HCL 5 MG CAPSULE PO SCH (21:35)
[2018-09-10] MEDS: ALBUTEROL SULFATE/IPRATROPIUM 3 ML NEBU IH SCH ×2 (00:14→06:10)
[2018-09-10] MEDS: METHYLPREDNISOLONE SOD SUCC/PF 125 MG/2 ML VIAL IV SCH ×2 (01:38→08:48)
[2018-09-10 05:28] LABS: Hemoglobin 14.4 gm/dL (13.5-18.0); Mean Cell Volume 99.5 fl (78-100); Mean Corpuscular Hemoglobin 32.6 pg (27-31); Mean Corpuscular Hgb Conc 32.7 g/dl (32-36); Mean Platelet Volume 9.6 fl (8-11.3); Neutrophil # 6.8 K/mm3 (1.3-6.0); Neutrophil % 86.2 % (42-75.0); Platelet Count 292 K/mm3 (150-450); Red Blood Count 4.42 M/mm3 (4.7-6.0); Red Cell Distribution Width 12.2 % (11.5-14.0); White Blood Count 7.9 K/mm3 (4.0-10.5)
[2018-09-10 05:39] LABS: Anion Gap 8.5 mmol/L (6.8-13.8); BUN/Creatinine Ratio 28.8 (9.0-21.6); Calcium * 9.1 mg/dL (7.9-10.9); Carbon Dioxide 30.7 mmol/L (24-32.6); Estimated Creat Clear 90.7; Potassium 4.2 mmol/L (3.4-4.6)
[2018-09-10] MEDS: traMADol HCL 50 MG TABLET PO PRN (07:42)
[2018-09-10] MEDS: ENOXAPARIN SODIUM 40 MG/0.4 ML SYRG SC SCH (07:43)
[2018-09-10] MEDS: PANTOPRAZOLE SODIUM 20 MG TABLET.DR PO SCH (07:43)
[2018-09-10] MEDS: DULoxetine HCL 30 MG CAPSULE.SA PO SCH (08:48)
[2018-09-10] MEDS: LEVOFLOXACIN IN DEXTROSE 5 % 750 MG/150 ML BAG IV SCH (08:50)
--- NOTE | 2018-09-10 09:52 | DS ---
(1) COPD exacerbation Problem: Acute (2) Bronchitis Problem: Acute (3) Chronic back pain Problem: Chronic Qualifiers: Back pain location: low back pain (4) Fibromyalgia Problem: Chronic (5) Anxiety and depression Problem: Chronic (6) Acute respiratory failure Problem: Resolved Qualifiers: Respiratory failure complication: hypoxia Qualified Code(s): J96.01 - Acute respiratory failure with hypoxia Description of Stay: Ghulam Stone, is a 62 year old white male with PMH of COPD. Cervical spone fusion, who admited on 09/06/2018 for increase shortness of breath. For the last 1 week [employer], he had been having cough, productive of yellowish phlegm, associated with wheezing and shortness of breath. He thought he could have had fever and chills but is not documented. He was seen in our ED and was given decadron and discharged on Duoneb. EMS was called on the day of admission because of worsening of his SOB, wheezing and coughing. He had been having chest wall pain increased with coughing. EMS documented O2 saturations in the 70's to low 80's % on room air when they got to his house. He was so SOB that he could not finish his sentences and was not able to provide a history to the EMS. His WBC was 11.2, and his troponin was less than 0.017. His EKG showed sinus tachycardia with nonspecific ST-T wave changes. His CXR showed diffuse hyperinflation with flattening of the hemidiaphragm. He wears O2 3 L only at night but does not wear it in the daytime as he goes to work at [employer]. This was his 1st admission for the year but has had 2-3 admissions a year in the past for COPD exacerbations. He denied intubation in the past. The patient was put on o2 and started on breathing treatment, IV antibiotics and IV solumedrol. He improved clinically. His BS went up with his steroids and had a low dose of long acting insulin. He is back to his baseline saturation on the daytime . He is stable to be discharged to follow up with his PCP in 1 week. Procedures Performed: none Results and Findings: Pending Mircobiology Results 09/06/18 05:35 Blood Blood Culture - Preliminary NO GROWTH AFTER 48 HOURS 09/06/18 04:35 Blood Blood Culture - Preliminary NO GROWTH AFTER 48 HOURS Lab Pending Results 09/06/18 04:19: pCO2 40.9, pO2 64.2 L, HCO3 23.7, Total CO2 24.9 H, Base Excess -1.4, ABG pH 7.38, ABG O2 Sat (Measured) 92.2 L 09/06/18 04:35: WBC 11.3 H, RBC 4.02 L, Hgb 13.0 L, Hct 40.7 L, MCV 101.2 H, MCH 32.3 H, MCHC 31.9 L, RDW 12.9, Plt Count 225, MPV 9.1, Immature Gran % (Auto) 0.30, Immature Gran # (Auto) 0.03, Neutrophils % 86.5 H, Lymphocytes % 5.9 L, Monocytes % 7.0, Eosinophils % 0.1, Basophils % 0.2, Nucleated RBC % 0.0, Neutrophils # 9.8 H, Lymphocytes # 0.66 L, Monocytes # 0.8, Eosinophils # 0.0, Absolute Basophils 0.0 09/06/18 04:35: Sodium 142, Plasma Sodium 143 H, Potassium 3.6, Chloride 104, Carbon Dioxide 27.6, Anion Gap 14.0 H, BUN 16, Creatinine 1.10, Est GFR (Non-Af Amer) 72 D, BUN/Creatinine Ratio 14.5, Random Glucose 142 H D, Calcium 8.8, Calcium Adj for Albumin 9.0, Total Bilirubin 0.5, AST 21, ALT 20, Alkaline Phosphatase 72, Troponin I Less than 0.017, B-Natriuretic Peptide 339 H, Total Protein 6.7, Albumin 3.4 09/06/18 04:35: D-Dimer 0.25 09/06/18 10:23: Troponin I 0.027 09/06/18 13:30: Influ A H1N1/09 TEM-PCR Not detected, Influenza A (H3) PCR Not detected, Jenaro Influenza A PCR Not detected, Influenza Type B (PCR) Not detected 09/07/18 08:25: WBC 9.6, RBC 4.11 L, Hgb 13.3 L, Hct 42.4, MCV 103.2 H, MCH 32.4 H, MCHC 31.4 L, RDW 12.8, Plt Count 246, MPV 10.2, Immature Gran % (Auto) 0.30, Immature Gran # (Auto) 0.03, Neutrophils % 94.0 H, Lymphocytes % 4.1 L, Monocytes % 1.5, Eosinophils % 0.0, Basophils % 0.1, Nucleated RBC % 0.0, Neutrophils # 9.1 H, Lymphocytes # 0.39 L, Monocytes # 0.1, Eosinophils # 0.0, Absolute Basophils 0.0 09/07/18 08:25: Sodium 142, Plasma Sodium 144 H, Potassium 3.9, Chloride 104, Carbon Dioxide 27.9, Anion Gap 14.0 H, BUN 17, Creatinine 0.95, Est GFR (Non-Af Amer) 86, BUN/Creatinine Ratio 17.9, Random Glucose 216 H D, Calcium 8.9 09/10/18 05:05: WBC 7.9, RBC 4.42 L, Hgb 14.4, Hct 44.0, MCV 99.5, MCH 32.6 H, MCHC 32.7, RDW 12.2, Plt Count 292, MPV 9.6, Immature Gran % (Auto) 0.50 H, Immature Gran # (Auto) 0.04 H, Neutrophils % 86.2 H, Lymphocytes % 9.4 L, M onocytes % 3.8, Eosinophils % 0.0, Basophils % 0.1, Nucleated RBC % 0.0, Neutrophils # 6.8 H, Lymphocytes # 0.74 L, Monocytes # 0.3, Eosinophils # 0.0, Absolute Basophils 0.0 09/10/18 05:05: Sodium 137, Plasma Sodium 138, Potassium 4.2, Chloride 102, Carbon Dioxide 30.7, Anion Gap 8.5, BUN 23, Creatinine 0.80, Est GFR (Non-Af Amer) 104 D, BUN/Creatinine Ratio 28.8 H, Random Glucose 138 H D, Calcium 9.1 Discharge Location: Home Disposition: Home self-care Condition: Stable Discharge Activity: Activity as tolerated Discharge Diet: General/regular food Referrals: Uvaldo Patel MD [Primary Care Provider] - Additional Patient Instructions (free text): Follow up with his PCP in 1 week. Prescriptions (Any new or edited meds): Albuterol Sulfate/Ipratropium [Duoneb 2.5-0.5MG/3ML Soln] 3 ml INHALATION BID PRN #1 nebu PRN Reason: Shortness Of Breath/Wheezing Levofloxacin [Levaquin] 750 mg PO DAILY #3 tab predniSONE [Prednisone] 10 mg PO DAILY #20 tab.ds.pk Complete Home Medications List: Complete Home Medication List: DULoxetine HCL [Cymbalta] 30 mg PO DAILY 06/23/13 Hydroxyzine HCl 50 mg PO Q4H PRN 06/23/13 traMADol HCL [Ultram] 100 mg PO TID PRN 07/25/18 Albuterol Sulfate [Proair Hfa] 8.5 gm INHALATION Q6H PRN 09/06/18 Pantoprazole Sodium 20 mg PO DAILY 09/06/18 Terazosin HCl 5 mg PO HS 09/06/18 Umeclidinium Brm/Vilanterol Tr [Anoro Ellipta 62.5-25 Mcg INH] 1 ea INHALATION DAILY 09/06/18 Albuterol Sulfate/Ipratropium [Duoneb 2.5-0.5MG/3ML Soln] 3 ml INHALATION BID PRN #1 nebu 09/10/18 Levofloxacin [Levaquin] 750 mg PO DAILY #3 tab 09/10/18 predniSONE [Prednisone] 10 mg PO DAILY #20 tab.ds.pk 09/10/18
[2018-09-10 12:06] VITALS: BP 143/93
== END 2018-09-10 11:30 | disposition home or self-care (01) | DRG 190 ==
LOC: ER 03:42 → MS 08:07
PROVIDERS: ADMIT Internal Medicine; ATTEND Internal Medicine
DX: F41.8 Other specified anxiety disorders; J96.01 Acute respiratory failure with hypoxia; J44.1 Chronic obstructive pulmonary disease with (acute) exacerbation; F17.210 Nicotine dependence, cigarettes, uncomplicated; J44.0 Chronic obstructive pulmonary disease with (acute) lower respiratory infection; M79.7 Fibromyalgia; M54.5 Low back pain; J45.901 Unspecified asthma with (acute) exacerbation; J20.9 Acute bronchitis, unspecified
CPT/HCPCS: 36415; 36600; 71010; 71045; 80048; 80053; 82803; 83519; 83880; 84484; 85025; 85379; 87040; 87631; 93005; 94640; 94664; 94760; 96361; 96365; 96367; 96375; 99285; J0131

== ENCOUNTER 2019-03-13 00:42 | Observation (INO) ==
[2019-03-13 01:02] LABS: Hematocrit 43.9 % (42.0-52.0); Mean Cell Volume 100.7 fl (78-100); Mean Corpuscular Hemoglobin 34.4 pg (27-31); Mean Corpuscular Hgb Conc 34.2 g/dl (32-36); Mean Platelet Volume 9.3 fl (8-11.3); Neutrophil # 8.6 K/mm3 (1.3-6.0); Neutrophil % 80.2 % (42-75.0); Platelet Count 243 K/mm3 (150-450); Red Blood Count 4.36 M/mm3 (4.7-6.0); Red Cell Distribution Width 13.1 % (11.5-14.0); White Blood Count 10.7 K/mm3 (4.0-10.5)
--- NOTE | 2019-03-13 01:03 | ERNOTE ---
Chest Pain/Cardiac HPI Date of Service: 03/13/19 Chief Complaint: Chest Pain Time Seen by Provider: 03/13/19 00:58 Source: patient Immunizations: IMMUNIZATION HX Immunizations Up to Date Yes History of Influenza Vaccine Yes Hx Pneumococcal Vaccination Yes Allergies/Adverse Reactions: Allergies No Known Allergies Allergy (Verified 03/13/19 03:22) Home Medications: HOME MEDICATIONS Umeclidinium Brm/Vilanterol Tr [Anoro Ellipta 62.5-25 Mcg INH] 1 ea INHALATION DAILY 09/06/18 [Last Taken Unknown] Albuterol Sulfate/Ipratropium [Duoneb 2.5-0.5MG/3ML Soln] 3 ml INHALATION QID PRN 03/13/19 [Last Taken Unknown] Narrative: This is a 63-year-old gentleman comes to the ER at 1245 by EMS with complaint of chest pain. The pain started around 5 or 6 this evening. He describes it as a sharp pain that is sometimes dull or aching or squeezing depending on his position. It is located in the left chest. Radiates to the left arm and the shoulder. Patient reports that he had diaphoresis and severe nausea when the pain came on. He denies feeling any more short of breath than usual but he has a history of COPD. He does not have high blood pressure, diabetes, high cholesterol. He does not know his family history. He is a smoker. Patient was given baby aspirin in route. He also took baby aspirin at home. Patient says that he has had symptoms like this in the past but at that time it was diagnosed as COPD. He has been coughing but no change in his mucus production no vomiting or abdominal pain. No rashes. No sore throat runny nose Review of Systems - Review of Systems Constitutional: Present: diaphoresis EYE: Present: no symptoms reported ENT: Present: no symptoms reported Respiratory: Present: shortness of breath, cough Cardiology: Present: chest pain Gastrointestinal/Abdominal: Present: nausea. Absent: vomiting, abdominal pain Genitourinary: Present: no symptoms reported Musculoskeletal: Present: no symptoms reported Skin: Present: no symptoms reported Neurological: Present: no symptoms reported Endocrine: Present: no symptoms reported Hematologic/Lymphatic: Present: no symptoms reported Psych: Present: no symptoms reported All Other Systems: All systems neg except as marked Medical History (Updated 01/07/19 @ 00:01 by ) COPD (chronic obstructive pulmonary disease) Surgical History: Surgical History (Updated 09/10/18 @ 09:53 by Ottoniel Anglin MD) History of cholecystectomy History of fusion of cervical spine History of lumbar surgery History of shoulder surgery Family History: Family History (Updated 09/04/18 @ 22:32 by Luiza Garcia, RN) Other No pertinent family history Social History: (Last Reviewed 03/13/19 @ 03:22 by Anamika Mcmahon, ALINE) Tobacco: Smoking Status: Current every day smoker Smoking cigarettes per day: 10 Alcohol: alcohol intake: current Substance Use: substance use type: does not use Physical Exam - Physical Exam General Appearance: Present: wd/wn, alert, no apparent distress Head Exam: Present: normal inspection, no evidence of injury Eye Exam: Normal inspection: bilateral, PERRL: bilateral, EOMI: bilateral Ears, Nose, Throat: Present: normal ENT inspection, normal pharynx Neck: Present: normal inspection, nontender Respiratory: Present: no respiratory distress, chest nontender, lungs clear, other - Occasional rhonchi especially in the lower lungs both sides. Cardiovascular/Chest: Present: no murmur, tachycardia Gastrointestinal/Abdominal: Present: normal bowel sounds, nontender, nondistended, soft Back Exam: Present: normal inspection, normal range of motion, no CVA tenderness, no vertebral tenderness Extremity Exam: Present: normal inspection, non-tender, normal range of motion, no edema Neurological Exam: Present: alert, oriented, normal mood/affect, no motor/sensory deficits Skin Exam: Present: normal color, warm/dry Lymphatic Exam: Present: no adenopathy Progress - Vital Signs Vital Signs: Vital Signs 03/13/19 00:51 Temperature 37.2 C Pulse Rate 118 H Respiratory Rate 17 Blood Pressure 93/54 O2 Sat by Pulse Oximetry 96 - Progress/Reassessment Chief Complaint: Chest Pain Departure Clinical Impression: COPD (chronic obstructive pulmonary disease) Qualifiers: COPD type: unspecified COPD Qualified Code(s): J44.9 - Chronic obstructive pulmonary disease, unspecified Chest pain Qualifiers: Chest pain type: unspecified Qualified Code(s): R07.9 - Chest pain, unspecified - Departure Disposition: Still a patient Condition: Fair
[2019-03-13] MEDS ORDERED: NORMAL SALINE 1,000 ML IV ONE (01:05)
[2019-03-13] MEDS ORDERED: METOPROLOL TARTRATE 1 MG/ML AMPUL IV ONE (01:23)
[2019-03-13 01:26] LABS: Ca. Corrected For Albumin 9.4 mg/dL (8.4-10.2)
[2019-03-13 01:27] LABS: ALT 14 U/L (19-67); AST 13 U/L (0-48); Albumin * 3.5 gm/dl (3.4-5.0); Alkaline Phosphatase * 91 U/L (50-170); Anion Gap 16.2 mmol/L (6.8-13.8); BNP * 215 pg/mL (5-175); BUN/Creatinine Ratio 8.7 (9.0-21.6); Bilirubin, Total 0.4 mg/dL (0.0-1.1); Blood Urea Nitrogen 10 mg/dL (6-23); Calcium * 9.3 mg/dL (7.9-10.9); Carbon Dioxide 21.8 mmol/L (24-32.6); Chloride 103 mmol/L (97-106); Glucose * 137 mg/dL (70-110); Sodium 137 mmol/L (132-142); Total Protein 6.6 gm/dL (6.2-8.2); Troponin I Less than 0.017 ng/mL (0.00-0.10)
[2019-03-13] MEDS ORDERED: METHYLPREDNISOLONE SOD SUCC/PF 125 MG/2 ML VIAL IV ONE (01:38)
[2019-03-13] MEDS: ALBUTEROL SULFATE/IPRATROPIUM 3 ML NEBU IH SCH ×3 (01:47→02:09)
[2019-03-13] MEDS ORDERED: ALBUTEROL SULFATE/IPRATROPIUM 3 ML NEBU IH PRN (02:07)
[2019-03-13] MEDS ORDERED: TIOTROPIUM BROMIDE 5 CAP INHALER IH SCH (08:00)
[2019-03-13] MEDS ORDERED: FORMOTEROL FUMARATE 20 MCG/2 ML VIAL IH SCH (08:00)
[2019-03-13] MEDS ORDERED: DOXYCYCLINE HYCLATE 100 MG TABLET PO SCH (09:00)
[2019-03-13] MEDS ORDERED: predniSONE 20 MG TABLET PO ONE (09:00)
[2019-03-13] MEDS ORDERED: FLU VACC QS2019-20(6MOS UP)/PF 60 MCG/0.5 ML SYRINGE IM ONE (09:00)
--- NOTE | 2019-03-13 09:40 | HPDIS ---
Chief Complaint - Chief Complaint Date of Service: 03/13/19 Time of Service: 09:39 Chief Complaint: chest pain History of Present Illness: Patient with past medical history of COPD on Anoro, nebulizer, and nighttime oxygen presented after not being able to catch his breath. He reported having chest pain, but he always has chest pain. He also always has a cough at baseline. His cough is not productive. He did feel like he was chilling prior to arrival in the ED, and has not checked his temperature. He smokes 1/2-3/4 of a pack of cigarettes a day. He has used oxygen at night for about a year. He denies recent trauma. No recent upper respiratory infections. He has had a decreased appetite for a while, but his weight has not changed. Denies lower extremity swelling yesterday, but does have some off-and-on based on what he does at work. He works at [email or web address], and recently needed to move a product that was moldy. He feels like his current symptoms are related to that mold. He also complains of some abdominal pain which is been present for years. His bowel movements are regular. He has colonoscopies every 3 years for precancerous lesions, and may be due currently. He also has some dysuria and urinary frequency. His troponin was not elevated. His EKG showed some ST depression in V5 and V6, similar to previous EKG. Medical History (Updated 03/13/19 @ 09:39 by Gunjan Calix DO) COPD (chronic obstructive pulmonary disease) Surgical History: Surgical History (Updated 09/10/18 @ 09:53 by Ottoniel Anglin MD) History of cholecystectomy History of fusion of cervical spine History of lumbar surgery History of shoulder surgery Family History: Family History (Updated 09/04/18 @ 22:32 by Luiza Garcia RN) Other No pertinent family history Social History: (Last Reviewed 03/13/19 @ 03:22 by Anamika Mcmahon RN) Tobacco: Smoking Status: Current every day smoker Smoking cigarettes per day: 10 Alcohol: alcohol intake: current Substance Use: substance use type: does not use Review Of Systems (GEN) - Review of Systems Generalized/Overall Review: Present: Chills. Absent: Weight loss Respiratory: Present: Cough, Shortness of Breath Cardiac: Present: Chest Pain. Absent: Edema Abdominal: Present: Abdominal Pain - baseline. Absent: Nausea, Constipation, Diarrhea Genitourinary: Present: Burning, Urgency Skin: Present: No Symptoms Reported Immunizations: IMMUNIZATION HX Immunizations Up to Date Yes History of Influenza Vaccine Yes Hx Pneumococcal Vaccination Yes Allergies/Adverse Reactions: Allergies Allergy/AdvReac Type Severity Reaction Status Date / Time No Known Allergies Allergy Verified 03/13/19 03:22 Home Medications: HOME MEDICATIONS Umeclidinium Brm/Vilanterol Tr [Anoro Ellipta 62.5-25 Mcg INH] 1 ea INHALATION DAILY 09/06/18 [Last Taken Unknown] Albuterol Sulfate/Ipratropium [Duoneb 2.5-0.5MG/3ML Soln] 3 ml INHALATION QID PRN 03/13/19 [Last Taken Unknown] Doxycycline Hyclate [Vibratab] 100 mg PO BID #9 tab 03/13/19 [Last Taken Unknown] predniSONE [Prednisone] 2 tab PO DAILY #10 tab 03/13/19 [Last Taken Unknown] Exam - Exam Vital Signs: Vital Signs - Last Taken Temp 36.4 C 03/13/19 07:16 Pulse 82 03/13/19 07:16 Resp 16 03/13/19 07:16 BP 111/72 03/13/19 07:16 Pulse Ox 96 03/13/19 07:16 Constitutional: Present: Alert, Cooperative, No distress, Looks Older than stated age Respiratory: Present: lungs clear, decreased breath sounds, No rales, No wheezing Cardiovascular/Chest: Present: regular rate, rhythm Abdomen: Present: tender - diffuse Extremity: Absent: lower extremity edema Neurologic: Present: normal mood/affect Eye contact: Present: cooperative Diagnostic Studies: Abnormal Lab Results 03/13/19 03/13/19 Range/Units 00:55 00:55 WBC 10.7 H (4.0-10.5) K/mm3 RBC 4.36 L (4.7-6.0) M/mm3 MCV 100.7 H (78-100) fl MCH 34.4 H (27-31) pg Neutrophils % 80.2 H (42-75.0) % Lymphocytes % 8.4 L (20-51) % Neutrophils # 8.6 H (1.3-6.0) K/mm3 Lymphocytes # 0.90 L (1.5-3.5) k/mm3 Carbon Dioxide 21.8 L (24-32.6) mmol/L Anion Gap 16.2 H (6.8-13.8) mmol/L BUN/Creatinine Ratio 8.7 L (9.0-21.6) Random Glucose 137 H (70-110) mg/dL ALT 14 L (19-67) U/L B-Natriuretic Peptide 215 H (5-175) pg/mL Laboratory Results WBC 10.7 K/mm3 (4.0-10.5) H 03/13/19 00:55 RBC 4.36 M/mm3 (4.7-6.0) L 03/13/19 00:55 Hgb 15.0 gm/dL (13.5-18.0) 03/13/19 00:55 Hct 43.9 % (42.0-52.0) 03/13/19 00:55 MCV 100.7 fl (78-100) H 03/13/19 00:55 MCH 34.4 pg (27-31) H 03/13/19 00:55 MCHC 34.2 g/dl (32-36) 03/13/19 00:55 RDW 13.1 % (11.5-14.0) 03/13/19 00:55 Plt Count 243 K/mm3 (150-450) 03/13/19 00:55 MPV 9.3 fl (8-11.3) 03/13/19 00:55 Immature Gran % (Auto) 0.30 % (0.001-0.429) 03/13/19 00:55 Immature Gran # (Auto) 0.03 K/mm3 (0.000-0.0310) 03/13/19 00:55 80.2 % (42-75.0) H 03/13/19 00:55 8.4 % (20-51) L 03/13/19 00:55 8.0 % (0.0-9) 03/13/19 00:55 2.5 % (0.0-3.0) 03/13/19 00:55 0.6 % (0.0-1.0) 03/13/19 00:55 Nucleated RBC % 0.0 k/mm3 (0-1) 03/13/19 00:55 8.6 K/mm3 (1.3-6.0) H 03/13/19 00:55 0.90 k/mm3 (1.5-3.5) L 03/13/19 00:55 0.9 k/mm3 (0.0-1.0) 03/13/19 00:55 0.3 k/mm3 (0.0-0.7) 03/13/19 00:55 Absolute Basophils 0.1 k/mm3 (0.0-0.1) 03/13/19 00:55 Sodium 137 mmol/L (132-142) 03/13/19 00:55 138 mmol/L (130-142) 03/13/19 00:55 Potassium 4.0 mmol/L (3.4-4.6) 03/13/19 00:55 Chloride 103 mmol/L (97-106) 03/13/19 00:55 Carbon Dioxide 21.8 mmol/L (24-32.6) L 03/13/19 00:55 16.2 mmol/L (6.8-13.8) H 03/13/19 00:55 BUN 10 mg/dL (6-23) D 03/13/19 00:55 1.15 mg/dL (0.4-1.4) 03/13/19 00:55 Est GFR (Non-Af Amer) 68 mL/min (60-130) 03/13/19 00:55 8.7 (9.0-21.6) L 03/13/19 00:55 137 mg/dL (70-110) H 03/13/19 00:55 Calcium 9.3 mg/dL (7.9-10.9) 03/13/19 00:55 Calcium Adj for Albumin 9.4 mg/dL (8.4-10.2) 03/13/19 00:55 0.4 mg/dL (0.0-1.1) 03/13/19 00:55 AST 13 U/L (0-48) 03/13/19 00:55 ALT 14 U/L (19-67) L 03/13/19 00:55 91 U/L (50-170) 03/13/19 00:55 Less than 0.017 ng/mL (0.00-0.10) 03/13/19 04:55 B-Natriuretic Peptide 215 pg/mL (5-175) H 03/13/19 00:55 6.6 gm/dL (6.2-8.2) 03/13/19 00:55 3.5 gm/dl (3.4-5.0) 03/13/19 00:55 Assessment/Plan - Assessment/Plan (1) COPD exacerbation Assessment: Troponin was not elevated, and no acute EKG changes. His chest pain is subsided by the time of my examination. He was given 125 mg Solu-Medrol in the ED, and will continue with 40 mg prednisone for the next 4 days. We will also treat with doxycycline twice daily for 5-day course. Briefly discussed tobacco cessation, and he is pre-contemplative. No increased oxygen requirements from baseline. He is afebrile, and heart rate and respiratory rate are within normal limits. Problem: Acute (2) Nicotine dependence Problem: Acute (3) Chest pain Problem: Chronic Qualifiers: Chest pain type: unspecified Qualified Code(s): R07.9 - Chest pain, unspecified (4) Dysuria Assessment: Reports this is chronic, along with increased frequency. Urinalysis pending, and will obtain urine culture if indicated. WBC not significantly elevated. If signs of UTI present, I expect the doxycyline being given for his COPD exacerbation to cover this as well. Problem: Acute (1) COPD exacerbation Problem: Acute (2) Nicotine dependence Problem: Acute (3) Chest pain Problem: Acute Qualifiers: Chest pain type: unspecified Qualified Code(s): R07.9 - Chest pain, unspecified (4) Dysuria Problem: Acute Date of Discharge:: 03/13/19 Description of Stay: See above. Procedures Performed: none Results and Findings: Lab Pending Results 03/13/19 00:55: WBC 10.7 H, RBC 4.36 L, Hgb 15.0, Hct 43.9, MCV 100.7 H, MCH 34.4 H, MCHC 34.2, RDW 13.1, Plt Count 243, MPV 9.3, Immature Gran % (Auto) 0.30, Immature Gran # (Auto) 0.03, Neutrophils % 80.2 H, Lymphocytes % 8.4 L, Monocytes % 8.0, Eosinophils % 2.5, Basophils % 0.6, Nucleated RBC % 0.0, Neutrophils # 8.6 H, Lymphocytes # 0.90 L, Monocytes # 0.9, Eosinophils # 0.3, Absolute Basophils 0.1 03/13/19 00:55: Sodium 137, Plasma Sodium 138, Potassium 4.0, Chloride 103, Carbon Dioxide 21.8 L, Anion Gap 16.2 H, BUN 10 D, Creatinine 1.15, Est GFR (Non-Af Amer) 68, BUN/Creatinine Ratio 8.7 L, Random Glucose 137 H, Calcium 9.3, Calcium Adj for Albumin 9.4, Total Bilirubin 0.4, AST 13, ALT 14 L, Alkaline Phosphatase 91, Troponin I Less than 0.017, B-Natriuretic Peptide 215 H, Total Protein 6.6, Albumin 3.5 03/13/19 04:55: Troponin I Less than 0.017 Discharge Location: Home Disposition: Home self-care Condition: Fair Discharge Activity: Activity as tolerated Discharge Diet: General/regular food Referrals: Uvaldo Patel MD [Primary Care Provider] - One Week Additional Patient Instructions (free text): - [facility] will call you on Thursday with Dr. Patel follow up appointment. Prescriptions (Any new or edited meds): predniSONE [Prednisone] 2 tab PO DAILY #10 tab Doxycycline Hyclate [Vibratab] 100 mg PO BID #9 tab Complete Home Medications List: Complete Home Medication List: Umeclidinium Brm/Vilanterol Tr [Anoro Ellipta 62.5-25 Mcg INH] 1 ea INHALATION DAILY 09/06/18 Albuterol Sulfate/Ipratropium [Duoneb 2.5-0.5MG/3ML Soln] 3 ml INHALATION QID PRN 03/13/19 Doxycycline Hyclate [Vibratab] 100 mg PO BID #9 tab 03/13/19 predniSONE [Prednisone] 2 tab PO DAILY #10 tab 03/13/19
[2019-03-13 13:04] LABS: Urine Appearance Clear (CLEAR); Urine Bacteria None Seen; Urine Bilirubin Negative (NEGATIVE); Urine Blood 5 /ul (NEGATIVE); Urine Color Yellow; Urine Ketone Negative (NEGATIVE); Urine Nitrite Negative (NEGATIVE); Urine Protein Negative (NEGATIVE); Urine RBC 0-5 /hpf (0-5); Urine Specific Gravity 1.025 SP.GR. (1.005-1.030); Urine Urobilinogen Normal (NORMAL); Urine WBC None Seen /hpf (0-5); Urine pH 5.5 pH (5.0-7.0)
[2019-03-13 13:50] VITALS: BP 126/69
== END 2019-03-13 14:02 | disposition home or self-care (01) ==
LOC: MS 00:42 → ER 00:42 → MS 02:50
PROVIDERS: ADMIT Family Medicine; ATTEND Family Medicine
CPT/HCPCS: 36415; 71010; 71045; 80053; 81001; 83519; 83880; 84484; 85025; 90686; 93005; 94640; 94664; 96374; 96375; 99285; G0008; G0378

== ENCOUNTER 2019-05-05 09:34 | Inpatient (IN) ==
--- NOTE | 2019-05-05 10:01 | ERNOTE ---
Dyspnea - Date Date of Service: 05/05/19 - General Presenting Symptoms: shortness of breath Time Seen by Provider: 05/05/19 10:00 Source: patient Exam Limitations: no limitations - Immun/Allergies/Home Medications Immunizations: IMMUNIZATION HX Immunizations Up to Date Yes History of Influenza Vaccine Yes Hx Pneumococcal Vaccination Yes Allergies/Adverse Reactions: Allergies No Known Allergies Allergy (Verified 05/05/19 14:19) Home Medications: HOME MEDICATIONS Umeclidinium Brm/Vilanterol Tr [Anoro Ellipta 62.5-25 Mcg INH] 1 ea INHALATION DAILY 09/06/18 [Last Taken Unknown] Albuterol Sulfate/Ipratropium [Duoneb 2.5-0.5MG/3ML Soln] 3 ml INHALATION QID PRN 03/13/19 [Last Taken 04/24/19 16:30] Albuterol Sulfate [Proair Hfa] 2 puff INHALATION Q4H PRN 04/24/19 [Last Taken Unknown] Hydroxyzine HCl 50 mg PO Q8H PRN 05/05/19 [Last Taken Unknown] Lisinopril [Zestril] 5 mg PO DAILY 05/05/19 [Last Taken Unknown] Terazosin HCl 5 mg PO HS 05/05/19 [Last Taken Unknown] - Pain Score Pain Score #1 Pain Score: 7 - History of Present Illness Narrative: The patient is a 63 year old male who presents for dyspnea which has been present since abrupt onset at midnight-0100. There are associated symptoms of diffuse anterior chest pain, 7/10. The patient reports pain to anterior chest, 7/10. There are no alleviating factors. There are aggravating factors of activity. Previous treatments have included: Duoneb without improvement. The past medical history includes: COPD and HTN. The social history is positive for current tobacco and daily alcohol use. The patient has had no known ill contacts. Patient was recently seen in ER and treated with outpatient antibiotics and steroids, patient states that symptoms have worsened with the inability to ambulate around his home due to dyspnea and provide for himself. Patient also reports having productive cough and tenacious sputum production. Review of Systems - Review of Systems Constitutional: Present: chills, fatigue. Absent: fever EYE: Present: no symptoms reported ENT: Present: no symptoms reported. Absent: ear pain, nasal drainage, sore throat Respiratory: Present: shortness of breath, cough Cardiology: Present: chest pain Gastrointestinal/Abdominal: Present: nausea, abdominal pain, eating less, drinking less. Absent: vomiting, diarrhea Genitourinary: Present: decreased urinary output. Absent: dysuria Musculoskeletal: Present: no symptoms reported Skin: Present: no symptoms reported. Absent: rash Neurological: Present: weakness All Other Systems: All systems neg except as marked Medical History (Last Reviewed 05/05/19 @ 10:31 by ISH Jacob) COPD (chronic obstructive pulmonary disease) Hypertension Surgical History: Surgical History (Last Reviewed 05/05/19 @ 10:31 by ISH Jacob) History of cholecystectomy History of fusion of cervical spine History of lumbar surgery History of shoulder surgery Family History: Family History (Last Reviewed 05/05/19 @ 10:31 by ISH Jacob) Other No pertinent family history Social History: (Last Reviewed 05/05/19 @ 10:31 by ISH Jacob) Tobacco: Smoking Status: Current every day smoker Smoking cigarettes per day: 10 Alcohol: alcohol intake: current alcohol intake frequency: 3 or more drinks per day Substance Use: substance use type: does not use Physical Exam - Physical Exam General Appearance: Present: wd/wn, alert, moderate distress Head Exam: Present: normal inspection Eye Exam: Normal inspection: bilateral Neck: Present: normal inspection Respiratory: Present: chest tenderness - diffuse anterior with palpation, respiratory distress - mild, accessory muscle use, decreased breath sounds, wheezing - diffuse expiratory wheezing Cardiovascular/Chest: Present: regular rate, rhythm, no murmur Gastrointestinal/Abdominal: Present: normal bowel sounds, nondistended, soft, no organomegaly, tenderness - diffuse . Absent: guarding, mass Extremity Exam: Present: no edema Neurological Exam: Present: alert, oriented, normal mood/affect, no motor/sensory deficits Skin Exam: Present: normal color, warm/dry Progress - Date and Time Seen: Date and Time: 05/05/19 11:43 Discussed results of testing with patient. Patient states he remains to have dyspnea and feels unable to return home. Will attempt ambulation with pulse ox monitoring. 05/05/19 12:23 Patient became tachycardic and tachypneic with ambulation. Discussed case with and will admit for observation, COPD exac. Patient was recently treated outpatient. Discussed treatment with and will use po Levaquin. - Results and Orders Patient's Lab Results:: I have reviewed the patient's lab results. - Vital Signs Patient's Vital Signs:: I have reviewed the patient's vital signs. Vital Signs: Vital Signs 05/05/19 09:42 05/05/19 09:47 Temperature 36.7 C Pulse Rate 100 111 H Respiratory Rate 25 H Blood Pressure 134/97 H O2 Sat by Pulse Oximetry 97 - EKG EKG #1 EKG: NSR - rate 111, tachycardia, premature ventricular contraction - occasional, nonspecific ST T wave changes EKG read: Reviewed by me - X-Ray X-Ray #1 X-Ray: chest Interpretation: Reviewed by me X-ray Comments: IMPRESSION: 1. No focal acute cardiopulmonary finding. 2. Stable findings are as above. Electronically signed by Kourtney Rios M.D.. - Progress/Reassessment Chief Complaint: Dyspnea Progress:: Unchanged Departure Clinical Impression: COPD exacerbation - Departure Disposition: Still a patient Condition: Fair
[2019-05-05] MEDS ORDERED: ALBUTEROL SULFATE/IPRATROPIUM 3 ML NEBU IH ONE (10:05)
[2019-05-05] MEDS ORDERED: METHYLPREDNISOLONE SOD SUCC/PF 125 MG/2 ML VIAL IV ONE (10:12)
[2019-05-05 10:43] LABS: Hematocrit 49.1 % (42.0-52.0); Hemoglobin 16.7 gm/dL (13.5-18.0); Mean Cell Volume 96.8 fl (78-100); Mean Corpuscular Hemoglobin 32.9 pg (27-31); Mean Platelet Volume 9.7 fl (8-11.3); Neutrophil # 5.8 K/mm3 (1.3-6.0); Neutrophil % 64.1 % (42-75.0); Platelet Count 298 K/mm3 (150-450); Red Blood Count 5.07 M/mm3 (4.7-6.0); White Blood Count 9.1 K/mm3 (4.0-10.5)
[2019-05-05 10:51] LABS: ALT 23 U/L (19-67); AST 13 U/L (0-48); Albumin * 3.4 gm/dl (3.4-5.0); Alkaline Phosphatase * 96 U/L (50-170); Amylase * 36 U/L (25-115); BUN/Creatinine Ratio 15.8 (9.0-21.6); Bilirubin, Total 0.7 mg/dL (0.0-1.1); Blood Urea Nitrogen 15 mg/dL (6-23); Ca. Corrected For Albumin 9.3 mg/dL (8.4-10.2); Calcium * 9.1 mg/dL (7.9-10.9); Carbon Dioxide 25.3 mmol/L (24-32.6); Chloride 104 mmol/L (97-106); Glucose * 95 mg/dL (70-110); Lipase 78 U/L (73-393); Potassium 4.3 mmol/L (3.4-4.6); Sodium 139 mmol/L (132-142)
[2019-05-05 10:52] LABS: Troponin I Less than 0.017 ng/mL (0.00-0.10)
[2019-05-05] MEDS ORDERED: LEVOFLOXACIN 500 MG TABLET PO ONE (12:13)
[2019-05-05] MEDS ORDERED: ALBUTEROL SULFATE/IPRATROPIUM 3 ML NEBU IH PRN ×3 (12:36→16:03)
[2019-05-05 15:26] LABS: Urine Bilirubin 1 mg/dl (NEGATIVE); Urine Blood 25 /ul (NEGATIVE); Urine Ketone 50 mg/dL (NEGATIVE); Urine Nitrite Negative (NEGATIVE); Urine Protein 15 mg/dL (NEGATIVE); Urine Specific Gravity 1.025 SP.GR. (1.005-1.030); Urine Urobilinogen Normal (NORMAL)
[2019-05-05 15:34] LABS: Urine Appearance Clear (CLEAR); Urine Bacteria TRACE; Urine Color Dark Yellow; Urine Mucus TRACE; Urine RBC TRACE /hpf (0-5); Urine WBC None Seen /hpf (0-5)
[2019-05-05 16:37] LABS: Cocaine Ur Negative (NEGATIVE); Urine Barbiturate Negative (NEGATIVE); Urine Benzodiazepines Negative (NEGATIVE); Urine PCP Negative (NEGATIVE); Urine THC Negative (NEGATIVE)
[2019-05-05 16:43] LABS: Urine Opiates Positive (NEGATIVE)
[2019-05-05] MEDS: ALBUTEROL SULFATE/IPRATROPIUM 3 ML NEBU IH SCH (18:15)
--- NOTE | 2019-05-05 23:25 | HP ---
Chief Complaint - Chief Complaint Date of Service: 05/05/19 Time of Service: 16:30 Chief Complaint: Shortness of breath History of Present Illness: Ghulam is a 63 yo male with COPD and chronic respiratory failure with 4lpm of oxygen at night. He reports over the last 3 weeks he has progressive shortness of breath and cough. Mucus has been getting thicker. No fever or chills. No sick contacts or travel. He reports in the last two days he became significantly more short of breath. Medical History (Last Reviewed 05/05/19 @ 14:14 by Lila Angulo RN) COPD (chronic obstructive pulmonary disease) Hypertension Surgical History: Surgical History (Last Reviewed 05/05/19 @ 14:14 by Lila Angulo RN) History of cholecystectomy History of fusion of cervical spine History of lumbar surgery History of shoulder surgery Family History: Family History (Last Reviewed 05/05/19 @ 14:15 by Lila Angulo RN) Father Cancer Other No pertinent family history Social History: (Last Updated 05/05/19 @ 14:19 by Lila Angulo RN) Social History: Marital status: lives independently: Yes household members: spouse, children number of children: 2 current occupational status: employed current occupation: [employer] Highest education level completed: high school graduate Service: Yes Service comment: [place] Tobacco: Smoking Status: Current every day smoker Smoking cigarettes per day: 6 quit status: not considering quitting Alcohol: alcohol intake: current Alcohol type: beer alcohol intake frequency: 3 or more drinks per day Substance Use: substance use type: does not use Dietary Habits: caffeine: Yes Type: carbonated beverages, coffee, tea Review Of Systems (GEN) - Review of Systems Generalized/Overall Review: Present: Weakness. Absent: Chills, Fever EENTM: Present: No Symptoms Reported Respiratory: Present: Cough, Shortness of Breath Cardiac: Absent: Chest Pain, Edema, Palpitations Abdominal: Absent: Nausea, Vomiting Genitourinary: Present: No Symptoms Reported Musculoskeletal: Present: No Symptoms Reported Neurological: Present: No Symptoms Reported Skin: Present: No Symptoms Reported Endocrine: Present: No Symptoms Reported Immunizations: IMMUNIZATION HX Immunizations Up to Date Yes History of Influenza Vaccine Yes Hx Pneumococcal Vaccination Yes Allergies/Adverse Reactions: Allergies Allergy/AdvReac Type Severity Reaction Status Date / Time No Known Allergies Allergy Verified 05/05/19 14:19 Home Medications: HOME MEDICATIONS Umeclidinium Brm/Vilanterol Tr [Anoro Ellipta 62.5-25 Mcg INH] 1 ea INHALATION DAILY 09/06/18 [Last Taken Unknown] Albuterol Sulfate/Ipratropium [Duoneb 2.5-0.5MG/3ML Soln] 3 ml INHALATION QID PRN 03/13/19 [Last Taken 04/24/19 16:30] Albuterol Sulfate [Proair Hfa] 2 puff INHALATION Q4H PRN 04/24/19 [Last Taken Unknown] Hydroxyzine HCl 50 mg PO Q8H PRN 05/05/19 [Last Taken Unknown] Lisinopril [Zestril] 5 mg PO DAILY 05/05/19 [Last Taken Unknown] Terazosin HCl 5 mg PO HS 05/05/19 [Last Taken Unknown] Exam - Exam Vital Signs: Vital Signs - Last Taken Temp 36.7 C 05/05/19 18:37 Pulse 81 05/05/19 18:37 Resp 16 05/05/19 18:37 BP 119/75 05/05/19 18:37 Pulse Ox 99 05/05/19 21:09 Constitutional: Present: Alert, Oriented x3, Cooperative ENT Exam: Present: hearing grossly normal Eye Exam: bilateral eye: normal inspection Respiratory: Present: respiratory distress - mlld tachypnea, decreased breath sounds - bilateral base Cardiovascular/Chest: Present: regular rate, rhythm, no edema, no murmur Abdomen: Present: Normal bowel sounds, soft, nondistended, no rebound tenderness, tender Skin Exam: Present: normal color, warm/dry, no cyanosis Lymphatic: Present: no adenopathy Neurologic: Present: alert, normal mood/affect, oriented x 3 Appearance: Present: appropriate appearance, appropriate insight Eye contact: Present: cooperative, good eye contact, normal speech Thoughts: Present: normal thought pattern, no apparent hallucination Diagnostic Studies: Abnormal Lab Results 05/05/19 05/05/19 05/05/19 Range/Units 10:25 10:25 15:19 MCH 32.9 H (27-31) pg Immature Gran % (Auto) 0.80 H (0.001-0.429) % Immature Gran # (Auto) 0.07 H (0.000-0.0310) K/mm3 Monocytes % 11.5 H (0.0-9) % Anion Gap 14.0 H (6.8-13.8) mmol/L Urine Protein 15 H (NEGATIVE) mg/dL Urine Blood 25 H (NEGATIVE) /ul Urine Bilirubin 1 H (NEGATIVE) mg/dl Urine Opiates Screen (NEGATIVE) 05/05/19 Range/Units 15:19 MCH (27-31) pg Immature Gran % (Auto) (0.001-0.429) % Immature Gran # (Auto) (0.000-0.0310) K/mm3 Monocytes % (0.0-9) % Anion Gap (6.8-13.8) mmol/L Urine Protein (NEGATIVE) mg/dL Urine Blood (NEGATIVE) /ul Urine Bilirubin (NEGATIVE) mg/dl Urine Opiates Screen Positive H (NEGATIVE) Laboratory Results WBC 9.1 K/mm3 (4.0-10.5) 05/05/19 10:25 RBC 5.07 M/mm3 (4.7-6.0) 05/05/19 10:25 Hgb 16.7 gm/dL (13.5-18.0) 05/05/19 10:25 Hct 49.1 % (42.0-52.0) 05/05/19 10:25 MCV 96.8 fl (78-100) 05/05/19 10:25 MCH 32.9 pg (27-31) H 05/05/19 10:25 MCHC 34.0 g/dl (32-36) 05/05/19 10:25 RDW 12.0 % (11.5-14.0) 05/05/19 10:25 Plt Count 298 K/mm3 (150-450) 05/05/19 10:25 MPV 9.7 fl (8-11.3) 05/05/19 10:25 Immature Gran % (Auto) 0.80 % (0.001-0.429) H 05/05/19 10:25 Immature Gran # (Auto) 0.07 K/mm3 (0.000-0.0310) H 05/05/19 10:25 Neutrophils % 64.1 % (42-75.0) 05/05/19 10:25 Lymphocytes % 20.4 % (20-51) 05/05/19 10:25 Monocytes % 11.5 % (0.0-9) H 05/05/19 10:25 Eosinophils % 2.5 % (0.0-3.0) 05/05/19 10:25 Basophils % 0.7 % (0.0-1.0) 05/05/19 10:25 Nucleated RBC % 0.0 k/mm3 (0-1) 05/05/19 10:25 Neutrophils # 5.8 K/mm3 (1.3-6.0) 05/05/19 10:25 Lymphocytes # 1.85 k/mm3 (1.5-3.5) 05/05/19 10:25 Monocytes # 1.0 k/mm3 (0.0-1.0) 05/05/19 10:25 Eosinophils # 0.2 k/mm3 (0.0-0.7) 05/05/19 10:25 Absolute Basophils 0.1 k/mm3 (0.0-0.1) 05/05/19 10:25 D-Dimer 0.29 ug/mL (0.19-0.49) 05/05/19 10:25 Sodium 139 mmol/L (132-142) 05/05/19 10:25 Plasma Sodium 139 mmol/L (130-142) 05/05/19 10:25 Potassium 4.3 mmol/L (3.4-4.6) 05/05/19 10:25 Chloride 104 mmol/L (97-106) 05/05/19 10:25 Carbon Dioxide 25.3 mmol/L (24-32.6) 05/05/19 10:25 Anion Gap 14.0 mmol/L (6.8-13.8) H 05/05/19 10:25 BUN 15 mg/dL (6-23) D 05/05/19 10:25 Creatinine 0.95 mg/dL (0.4-1.4) 05/05/19 10:25 Est GFR (Non-Af Amer) 85 mL/min (60-130) 05/05/19 10:25 BUN/Creatinine Ratio 15.8 (9.0-21.6) 05/05/19 10:25 Random Glucose 95 mg/dL (70-110) 05/05/19 10:25 Calcium 9.1 mg/dL (7.9-10.9) 05/05/19 10:25 Calcium Adj for Albumin 9.3 mg/dL (8.4-10.2) 05/05/19 10:25 Total Bilirubin 0.7 mg/dL (0.0-1.1) 05/05/19 10:25 AST 13 U/L (0-48) 05/05/19 10:25 ALT 23 U/L (19-67) 05/05/19 10:25 Alkaline Phosphatase 96 U/L (50-170) 05/05/19 10:25 Troponin I Less than 0.017 ng/mL (0.00-0.10) 05/05/19 10:25 Total Protein 7.0 gm/dL (6.2-8.2) 05/05/19 10:25 Albumin 3.4 gm/dl (3.4-5.0) 05/05/19 10:25 Amylase 36 U/L (25-115) 05/05/19 10:25 Lipase 78 U/L (73-393) 05/05/19 10:25 Urine Color Dark yellow 05/05/19 15:19 Urine Appearance Clear (CLEAR) 05/05/19 15:19 Urine pH 6.0 pH (5.0-7.0) 05/05/19 15:19 Ur Specific [place] 1.025 SP.GR. (1.005-1.030) 05/05/19 15:19 Urine Protein 15 mg/dL (NEGATIVE) H 05/05/19 15:19 Urine Glucose (UA) Negative mg/dL (NEGATIVE) 05/05/19 15: Urine Ketones 50 mg/dL (NEGATIVE) 05/05/19 15:19 Urine Blood 25 /ul (NEGATIVE) H 05/05/19 15:19 Urine Nitrate Negative (NEGATIVE) 05/05/19 15:19 Urine Bilirubin 1 mg/dl (NEGATIVE) H 05/05/19 15:19 Urine Ictotest Negative (NEGATIVE) 05/05/19 15: Prot Sulfosalicylic Acd Negative mg/dL (0) 05/05/19 15:19 Urine Urobilinogen Normal EU/dl (NORMAL) 05/05/19 15:19 Ur Leukocyte Esterase Negative /ul (NEGATIVE) 05/05/19 15:19 Urine RBC Trace /hpf (0-5) 05/05/19 15:19 Urine WBC None seen /hpf (0-5) 05/05/19 15:19 Ur Epithelial Cells None seen /hpf (0-5) 05/05/19 15:19 Urine Bacteria Trace (NONE) 05/05/19 15:19 Urine Mucus Trace (NONE) 05/05/19 15:19 Urine Culture Comments No culture indicated 05/05/19 15:19 Urine Opiates Screen Positive (NEGATIVE) H 05/05/19 15:19 Barbiturate Screen Negative (NEGATIVE) 05/05/19 15:19 Ur Phencyclidine Scrn Negative (NEGATIVE) 05/05/19 15:19 Urine Amphetamine Negative (NEGATIVE) 05/05/19 15:19 U Benzodiazepines Scrn Negative (NEGATIVE) 05/05/19 15:19 Urine Cocaine Screen Negative (NEGATIVE) 05/05/19 15:19 Urine Marijuana (THC) Negative (NEGATIVE) 05/05/19 15:19 Assessment/Plan - Narrative Narrative: Ghulam is a 63 yo male with COPD exacerbation. Will treat with steroids, nebulizers, and levaquin. Will admit to observation. He does not drop oxygen more than his baseline. He will stay on 4lpm of oxygen at night just like he does at home. Will monitor his respiratory status with treatment. He is sign ificantly short of breath and fatigues easily despite no hypoxia. - Assessment/Plan (1) COPD exacerbation Problem: Acute
[2019-05-06] MEDS: ALBUTEROL SULFATE/IPRATROPIUM 3 ML NEBU IH SCH ×4 (06:01→18:06)
[2019-05-06] MEDS: FORMOTEROL FUMARATE 20 MCG/2 ML VIAL IH SCH ×2 (06:01→18:08)
[2019-05-06] MEDS: predniSONE 20 MG TABLET PO SCH (08:15)
[2019-05-06] MEDS: TIOTROPIUM BROMIDE 5 CAP INHALER IH SCH (08:15)
[2019-05-06] MEDS ORDERED: ACETAMINOPHEN 500 MG TABLET PO PRN (09:22)
[2019-05-06] MEDS: KETOROLAC TROMETHAMINE 30 MG/ML VIAL IV PRN ×2 (09:44→17:08)
[2019-05-06] MEDS ORDERED: MAGNESIUM CITRATE 300 ML BTL PO ONE ×2 (12:23→12:30)
[2019-05-06] MEDS: LEVOFLOXACIN 500 MG TABLET PO SCH (13:20)
[2019-05-06 15:06] LABS: Hematocrit 47.1 % (42.0-52.0); Hemoglobin 16.2 gm/dL (13.5-18.0); Mean Cell Volume 97.1 fl (78-100); Mean Corpuscular Hemoglobin 33.4 pg (27-31); Mean Corpuscular Hgb Conc 34.4 g/dl (32-36); Mean Platelet Volume 9.6 fl (8-11.3); Neutrophil % 92.3 % (42-75.0); Platelet Count 327 K/mm3 (150-450); Red Blood Count 4.85 M/mm3 (4.7-6.0); Red Cell Distribution Width 12.1 % (11.5-14.0); White Blood Count 14.1 K/mm3 (4.0-10.5)
[2019-05-06 15:32] LABS: ALT 50 U/L (19-67); AST 36 U/L (0-48); Albumin * 3.4 gm/dl (3.4-5.0); Alkaline Phosphatase * 89 U/L (50-170); Anion Gap 15.7 mmol/L (6.8-13.8); BUN/Creatinine Ratio 22.6 (9.0-21.6); Bilirubin, Total 0.4 mg/dL (0.0-1.1); Blood Urea Nitrogen 28 mg/dL (6-23); Ca. Corrected For Albumin 10.2 mg/dL (8.4-10.2); Chloride 98 mmol/L (97-106); Glucose * 138 mg/dL (70-110); Potassium 4.7 mmol/L (3.4-4.6); Sodium 135 mmol/L (132-142); Troponin I Less than 0.017 ng/mL (0.00-0.10)
--- NOTE | 2019-05-06 15:57 | PN ---
Subjective - Date and Time Seen Date: 05/06/19 Time: 13:00 Subjective Narrative: Ghulam reports abdominal pain 02/22. Last bowel movement yesterday. He reports difficulty taking deep breaths and has only been able to walk to the door before he becomes too dyspneic and has to return to bed. He continues to use his 4lpm at bedtime. He was given magnesium citrate for significant stool retention seen on xray. No bowel movement yet. Continue steroids, levaquin, and duonebs scheduled. Continue to work on ambulation and improvement of breathing before he can be discharged to home. He is significant worse than his baseline and will be admitted to inpatient as he has failed a trial of observation. Objective - Vitals Vitals: Last Vital Signs Temp 36.3 C 05/06/19 14:41 Pulse 70 05/06/19 15:21 Resp 16 05/06/19 15:21 BP 127/79 05/06/19 14:41 Pulse Ox 97 05/06/19 15:21 - Abnormal Lab Findings Abnormal Lab Findings: Abnormal Lab Results 05/05/19 05/05/19 05/06/19 Range/Units 15:19 15:19 15:00 WBC (4.0-10.5) K/mm3 MCH (27-31) pg Immature Gran # (Auto) (0.000-0.0310) K/mm3 Neutrophils % (42-75.0) % Lymphocytes % (20-51) % Neutrophils # (1.3-6.0) K/mm3 Lymphocytes # (1.5-3.5) k/mm3 Potassium 4.7 H (3.4-4.6) mmol/L Anion Gap 15.7 H (6.8-13.8) mmol/L BUN 28 H D (6-23) mg/dL BUN/Creatinine Ratio 22.6 H (9.0-21.6) Random Glucose 138 H D (70-110) mg/dL Urine Protein 15 H (NEGATIVE) mg/dL Urine Blood 25 H (NEGATIVE) /ul Urine Bilirubin 1 H (NEGATIVE) mg/dl Urine Opiates Screen Positive H (NEGATIVE) 05/06/19 Range/Units 15:00 WBC 14.1 H D (4.0-10.5) K/mm3 MCH 33.4 H (27-31) pg Immature Gran # (Auto) 0.05 H (0.000-0.0310) K/mm3 Neutrophils % 92.3 H (42-75.0) % Lymphocytes % 5.3 L (20-51) % Neutrophils # 13.0 H (1.3-6.0) K/mm3 Lymphocytes # 0.75 L (1.5-3.5) k/mm3 Potassium (3.4-4.6) mmol/L Anion Gap (6.8-13.8) mmol/L BUN (6-23) mg/dL BUN/Creatinine Ratio (9.0-21.6) Random Glucose (70-110) mg/dL Urine Protein (NEGATIVE) mg/dL Urine Blood (NEGATIVE) /ul Urine Bilirubin (NEGATIVE) mg/dl Urine Opiates Screen (NEGATIVE) Assessment/Plan - Problems/Diagnosis (1) COPD exacerbation Problem: Acute
[2019-05-07] MEDS: KETOROLAC TROMETHAMINE 30 MG/ML VIAL IV PRN (04:47)
[2019-05-07] MEDS: FORMOTEROL FUMARATE 20 MCG/2 ML VIAL IH SCH (06:05)
[2019-05-07] MEDS: ALBUTEROL SULFATE/IPRATROPIUM 3 ML NEBU IH SCH ×2 (06:05→10:27)
[2019-05-07] MEDS: predniSONE 20 MG TABLET PO SCH (08:50)
[2019-05-07] MEDS: TIOTROPIUM BROMIDE 5 CAP INHALER IH SCH (08:51)
[2019-05-07] MEDS: LEVOFLOXACIN 500 MG TABLET PO SCH (12:00)
--- NOTE | 2019-05-07 12:48 | DS ---
Date of Discharge:: 05/07/19 Description of Stay: 63-year-old male admitted for COPD exacerbation was evaluated at bedside and was found to be afebrile and in no acute distress. Patient has shown clinical improvement, his shortness of breath has improved although he reports he becomes short of breath when ambulating long distances. However I believe this is the patient's baseline given his long history of COPD. Oxygen saturation on room air is above 96% and auscultation was negative for wheezing. His last labs demonstrated mild leukocytosis but this could be secondary to the steroids that we have been treating him with, there has been no recurrence of fever so no ongoing infection is suspected. We will discharge patient with a prescription for p.o. steroids and additional days of p.o. antibiotics. He was instructed to follow-up with his PCP within the next few days. Procedures Performed: none Results and Findings: Pending Mircobiology Results 05/05/19 10:54 Blood Blood Culture - Preliminary NO GROWTH AFTER 48 HOURS 05/05/19 10:25 Blood Blood Culture - Preliminary NO GROWTH AFTER 48 HOURS Lab Pending Results 05/05/19 10:25: WBC 9.1, RBC 5.07, Hgb 16.7, Hct 49.1, MCV 96.8, MCH 32.9 H, MCHC 34.0, RDW 12.0, Plt Count 298, MPV 9.7, Immature Gran % (Auto) 0.80 H, Immature Gran # (Auto) 0.07 H, Neutrophils % 64.1, Lymphocytes % 20.4, Monocytes % 11.5 H, Eosinophils % 2.5, Basophils % 0.7, Nucleated RBC % 0.0, Neutrophils # 5.8, Lymphocytes # 1.85, Monocytes # 1.0, Eosinophils # 0.2, Absolute Basophils 0.1 05/05/19 10:25: Sodium 139, Plasma Sodium 139, Potassium 4.3, Chloride 104, Carbon Dioxide 25.3, Anion Gap 14.0 H, BUN 15 D, Creatinine 0.95, Est GFR (Non- Af Amer) 85, BUN/Creatinine Ratio 15.8, Random Glucose 95, Calcium 9.1, Calcium Adj for Albumin 9.3, Total Bilirubin 0.7, AST 13, ALT 23, Alkaline Phosphatase 96, Troponin I Less than 0.017, Total Protein 7.0, Albumin 3.4, Amylase 36, Lipase 78 05/05/19 10:25: D-Dimer 0.29 05/05/19 15:19: Urine Color Dark yellow, Urine Appearance Clear, Urine pH 6.0, Ur Specific [place] 1.025, Urine Protein 15 H, Urine Glucose (UA) Negative, Urine Ketones 50, Urine Blood 25 H, Urine Nitrate Negative, Urine Bilirubin 1 H, Urine Ictotest Negative, Prot Sulfosalicylic Acd Negative, Urine Urobilinogen Normal, Ur Leukocyte Esterase Negative, Urine RBC Trace, Urine WBC None seen, Ur Epithelial Cells None seen, Urine Bacteria Trace, Urine Mucus Trace, Urine Culture Comments No culture indicated 05/05/19 15:19: Urine Opiates Screen Positive H, Barbiturate Screen Negative, Ur Phencyclidine Scrn Negative, Urine Amphetamine Negative, U Benzodiazepines Scrn Negative, Urine Cocaine Screen Negative, Urine Marijuana (THC) Negative 05/06/19 15:00: Sodium 135, Plasma Sodium 136, Potassium 4.7 H, Chloride 98, Carbon Dioxide 26.0, Anion Gap 15.7 H, BUN 28 H D, Creatinine 1.24, Est GFR (Non-Af Amer) 63 D, BUN/Creatinine Ratio 22.6 H, Random Glucose 138 H D, Calcium 10.0, Calcium Adj for Albumin 10.2, Total Bilirubin 0.4, AST 36, ALT 50, Alkaline Phosphatase 89, Troponin I Less than 0.017, Total Protein 7.0, Albumin 3.4 05/06/19 15:00: WBC 14.1 H D, RBC 4.85, Hgb 16.2, Hct 47.1, MCV 97.1, MCH 33.4 H, MCHC 34.4, RDW 12.1, Plt Count 327, MPV 9.6, Immature Gran % (Auto) 0.40, Immature Gran # (Auto) 0.05 H, Neutrophils % 92.3 H, Lymphocytes % 5.3 L, Monocytes % 1.9, Eosinophils % 0.0, Basophils % 0.1, Nucleated RBC % 0.0, Neutrophils # 13.0 H, Lymphocytes # 0.75 L, Monocytes # 0.3, Eosinophils # 0.0, Absolute Basophils 0.0 05/06/19 20:40: Troponin I Less than 0.017 Discharge Location: Home Disposition: Home self-care Condition: Fair Face to Face Encounter completed per [facility] Guidelines: No Discharge Activity: Activity as tolerated Discharge Diet: General/regular food Referrals: Uvaldo Patel MD [Primary Care Provider] - Problem Oriented Discharge Instructions to Patient/Family: Form - Excuse from Work, School, or Physical Activity Additional Patient Instructions (free text): Fax records to Dr. Patel in [place], patient will make own follow up appt. Prescriptions (Any new or edited meds): Levofloxacin [Levaquin] 500 mg PO Q24H 5 Days #5 tab Transmission Status: Pending to [facility] #[id number] predniSONE [Prednisone] 40 mg PO DAILY 5 Days #5 tab Transmission Status: Pending to [facility] #[id number] Complete Home Medications List: Complete Home Medication List: Umeclidinium Brm/Vilanterol Tr [Anoro Ellipta 62.5-25 Mcg INH] 1 ea INHALATION DAILY 09/06/18 Albuterol Sulfate/Ipratropium [Duoneb 2.5-0.5MG/3ML Soln] 3 ml INHALATION QID PRN 03/13/19 Albuterol Sulfate [Proair Hfa] 2 puff INHALATION Q4H PRN 04/24/19 Hydroxyzine HCl 50 mg PO Q8H PRN 05/05/19 Lisinopril [Zestril] 5 mg PO DAILY 05/05/19 Terazosin HCl 5 mg PO HS 05/05/19 Levofloxacin [Levaquin] 500 mg PO Q24H 5 Days #5 tab 05/07/19 predniSONE [Prednisone] 40 mg PO DAILY 5 Days #5 tab 05/07/19
[2019-05-07 13:40] VITALS: BP 119/88
== END 2019-05-07 13:48 | disposition home or self-care (01) | DRG 191 ==
LOC: MS 09:34 → ER 09:34 → OBSVTOIN 12:29 → MS 13:41
PROVIDERS: ADMIT Family Medicine; ATTEND Family Medicine
DX: F17.210 Nicotine dependence, cigarettes, uncomplicated; J96.10 Chronic respiratory failure, unspecified whether with hypoxia or hypercapnia; I10 Essential (primary) hypertension; J44.1 Chronic obstructive pulmonary disease with (acute) exacerbation
CPT/HCPCS: 36415; 71020; 71046; 74019; 74020; 80053; 80307; 81001; 82150; 83690; 84484; 85025; 85379; 87040; 93005; 94640; 94664; 94760; 96374; 99285

== ENCOUNTER 2019-07-23 10:58 | Observation (INO) ==
[2019-07-23] MEDS ORDERED: ALBUTEROL SULFATE/IPRATROPIUM 3 ML NEBU IH ONE (11:02)
[2019-07-23] MEDS ORDERED: METHYLPREDNISOLONE SOD SUCC/PF 125 MG/2 ML VIAL IV ONE (11:03)
[2019-07-23 11:22] LABS: Hematocrit 40.2 % (42.0-52.0); Hemoglobin 13.4 gm/dL (13.5-18.0); Mean Cell Volume 98.8 fl (78-100); Mean Corpuscular Hemoglobin 32.9 pg (27-31); Mean Corpuscular Hgb Conc 33.3 g/dl (32-36); Neutrophil # 7.1 K/mm3 (1.3-6.0); Neutrophil % 74.1 % (42-75.0); Platelet Count 237 K/mm3 (150-450); Red Blood Count 4.07 M/mm3 (4.7-6.0); Red Cell Distribution Width 13.3 % (11.5-14.0); White Blood Count 9.6 K/mm3 (4.0-10.5)
--- NOTE | 2019-07-23 11:24 | ERNOTE ---
Dyspnea - Date Date of Service: 07/23/19 - General Presenting Symptoms: shortness of breath, difficulty of breathing Time Seen by Provider: 07/23/19 10:59 Source: patient Exam Limitations: no limitations - Immun/Allergies/Home Medications Immunizations: IMMUNIZATION HX Immunizations Up to Date Yes History of Influenza Vaccine More Information Required Hx Pneumococcal Vaccination More Information Required Allergies/Adverse Reactions: Allergies No Known Allergies Allergy (Verified 06/08/19 18:44) Home Medications: HOME MEDICATIONS Umeclidinium Brm/Vilanterol Tr [Anoro Ellipta 62.5-25 Mcg INH] 1 ea INHALATION DAILY 09/06/18 [Last Taken Unknown] Albuterol Sulfate/Ipratropium [Duoneb 2.5-0.5MG/3ML Soln] 3 ml INHALATION QID PRN 03/13/19 [Last Taken 04/24/19 16:30] Albuterol Sulfate [Proair Hfa] 2 puff INHALATION Q4H PRN 04/24/19 [Last Taken Unknown] Hyoscyamine Sulfate [Hyoscyamine Sulfate Sr] 0.375 mg PO Q12H 05/17/19 [Last Taken Unknown] Acetaminophen with Codeine [Tylenol with Codeine #3 Tablet] 1 - 2 tab PO Q8H PRN 07/23/19 [Last Taken Unknown] - Pain Score Pain Score #1 Pain Score: 2 - History of Present Illness Narrative: The patient is a 63 year old male who presents for dyspnea which has been present since this am. There are associated symptoms of cough. The patient reports pain to diffuse abdomen, 2/10 which is unchanged. There are no alleviating factors. There are aggravating factors of activity. Previous treatments have included: albuterol via EMS in route without improvement. The past medical history includes: COPD and HTN. The social history is positive for current tobacco use. The patient has had no ill contacts. Patient reports hernia repair surgery yesterday at [facility]. Patient states this am he was having dyspnea which resolved and then recurred. Review of Systems - Review of Systems Constitutional: Present: fatigue. Absent: recent illness, fever, chills EYE: Present: no symptoms reported ENT: Present: no symptoms reported. Absent: ear pain, nasal drainage, sore throat Respiratory: Present: shortness of breath, cough Cardiology: Present: no symptoms reported. Absent: chest pain Gastrointestinal/Abdominal: Present: no symptoms reported. Absent: nausea, vomiting, diarrhea Genitourinary: Present: no symptoms reported. Absent: dysuria Musculoskeletal: Present: no symptoms reported. Absent: back pain Skin: Present: no symptoms reported. Absent: rash Neurological: Present: no symptoms reported All Other Systems: All systems neg except as marked Medical History (Last Reviewed 07/23/19 @ 11:08 by ISH Jacob) COPD (chronic obstructive pulmonary disease) Hypertension Surgical History: Surgical History (Last Reviewed 07/23/19 @ 11:08 by ISH Jacob) History of cholecystectomy History of fusion of cervical spine History of lumbar surgery History of shoulder surgery Family History: Family History (Last Reviewed 07/23/19 @ 11:08 by ISH Jacob) Father Cancer Other No pertinent family history Social History: (Last Reviewed 07/23/19 @ 11:08 by ISH Jacob) Social History: Marital status: lives independently: Yes household members: spouse, children number of children: 2 current occupational status: employed current occupation: [employer] Highest education level completed: high school graduate Service: Yes Service comment: [place] Tobacco: Smoking Status: Current every day smoker Smoking cigarettes per day: 6 quit status: not considering quitting Alcohol: alcohol intake: current Alcohol type: beer alcohol intake frequency: 3 or more drinks per day Substance Use: substance use type: does not use Dietary Habits: caffeine: Yes Type: carbonated beverages, coffee, tea Physical Exam - Physical Exam General Appearance: Present: wd/wn, alert, moderate distress Head Exam: Present: normal inspection Eye Exam: Normal inspection: bilateral Neck: Present: normal inspection Respiratory: Present: accessory muscle use, decreased breath sounds, wheezing - diffuse expiratory wheezing Cardiovascular/Chest: Present: regular rate, rhythm, no murmur Gastrointestinal/Abdominal: Present: normal bowel sounds, nondistended, soft, no organomegaly, tenderness - periumbilical, LLQ and RLQ, other - mild ecchymosis surrounding surgical wound, no drianage or erythema Extremity Exam: Present: no edema Neurological Exam: Present: alert, oriented, normal mood/affect, no motor/sensory deficits Skin Exam: Present: normal color, warm/dry Progress - Date and Time Seen: Date and Time: 07/23/19 11:35 Air exchange post treatment improved with clearing of wheezing and improved respiratory rate and depth. 07/23/19 11:57 Patient received IV bolus 500ml NS from EMS. 07/23/19 12:06 Patient remains having complaint of dyspnea with intermittent tachypnea and wheezing. Discussed case with will admit observation COPD exacerbation with recent hernia surgery. - Results and Orders Patient's Lab Results:: I have reviewed the patient's lab results. - Vital Signs Patient's Vital Signs:: I have reviewed the patient's vital signs. Vital Signs: Vital Signs 07/23/19 10:59 07/23/19 11:03 Temperature 36.5 C Pulse Rate 96 92 Respiratory Rate 20 Blood Pressure 139/67 O2 Sat by Pulse Oximetry 97 - EKG EKG #1 EKG: NSR, nonspecific ST T wave changes EKG read: Reviewed by me - X-Ray X-Ray #1 X-Ray: abdomen Interpretation: Reviewed by me X-ray Comments: IMPRESSION: 1. NONSPECIFIC BOWEL GAS PATTERN Electronically signed by Geoffrey Gutierrez M.D.. X-Ray #2 X-Ray: chest Interpretation: Reviewed by me X-ray Comments: IMPRESSION: 1. HYPERINFLATION WITH MILD FIBROTIC CHANGE. 2. NO ACUTE CARDIOPULMONARY PROCESS. Electronically signed by Geoffrey Gutierrez M.D.. - Progress/Reassessment Chief Complaint: Dyspnea Departure Clinical Impression: COPD exacerbation, S/P hernia surgery - Departure Disposition: Still a patient Condition: Good
[2019-07-23 11:39] LABS: ALT 34 U/L (19-67); AST 21 U/L (0-48); Alkaline Phosphatase * 70 U/L (50-170); Anion Gap 8.2 mmol/L (6.8-13.8); BUN/Creatinine Ratio 17.2 (9.0-21.6); Bilirubin, Total 0.3 mg/dL (0.0-1.1); Blood Urea Nitrogen 16 mg/dL (6-23); Ca. Corrected For Albumin 9.4 mg/dL (8.4-10.2); Calcium * 8.9 mg/dL (7.9-10.9); Carbon Dioxide 29.2 mmol/L (24-32.6); Chloride 105 mmol/L (97-106); Glucose * 134 mg/dL (70-110); Potassium 3.4 mmol/L (3.4-4.6); Sodium 139 mmol/L (132-142); Total Protein 6.3 gm/dL (6.2-8.2)
[2019-07-23 11:41] LABS: Troponin I Less than 0.017 ng/mL (0.00-0.10)
[2019-07-23] MEDS ORDERED: AZITHROMYCIN 250 MG TABLET PO ONE (12:16)
[2019-07-23] MEDS ORDERED: ALBUTEROL SULFATE/IPRATROPIUM 3 ML NEBU IH SCH (13:00)
[2019-07-23] MEDS ORDERED: ENOXAPARIN SODIUM 40 MG/0.4 ML SYRG SC SCH (15:15)
[2019-07-23] MEDS ORDERED: ACETAMINOPHEN WITH CODEINE 1 EACH TABLET PO PRN (15:18)
--- NOTE | 2019-07-23 16:20 | HP ---
Chief Complaint - Chief Complaint Date of Service: 07/23/19 Time of Service: 16:03 Chief Complaint: Shortness of breath progressively getting worse History of Present Illness: 63 year old M with PMHX of oxygen dependent (overnight 3L) COPD, Chronic back pain, MDD, JANETTE, Fibromyalgia and nicotine dependence is admitted to [facility] for Acute exacerbation of COPD. PCP: Uvaldo Martin. Patient is s/p left inguinal hernia repair, POD #[address] Canas of [facility]. Patient states since the surgery he has become progressively SOB and not responsive to usual breathing treatments at home. On arrival to the ER patient is mildly hypertensive and tachypneic. CXR, EKG and remaining workup is unremarkable. Received Duo-neb, azithromycin 500 mg po x 1, Rocephin IV 1 gram x 1 and Methylprednisone IV 125 mg X 1. Evaluated on arrival to the floor and patient is having difficulty breathing, and PE is cw with diffuse wheezing. Discussed management with patient. Voiced understanding and agreeable with plan. Medical History (Last Reviewed 07/23/19 @ 13:04 by Steff May RN) COPD (chronic obstructive pulmonary disease) Hypertension Surgical History: Surgical History (Last Reviewed 07/23/19 @ 13:04 by Steff May RN) History of cholecystectomy History of fusion of cervical spine History of lumbar surgery History of shoulder surgery Family History: Family History (Last Reviewed 07/23/19 @ 13:04 by Steff May RN) Father Cancer Other No pertinent family history Social History: (Last Reviewed 07/23/19 @ 13:04 by Steff May RN) Social History: Marital status: lives independently: Yes household members: spouse, children number of children: 2 current occupational status: employed current occupation: [employer] Highest education level completed: high school graduate Service: Yes Service comment: [place] Tobacco: Smoking Status: Current every day smoker Smoking cigarettes per day: 6 quit status: not considering quitting Alcohol: alcohol intake: current Alcohol type: beer alcohol intake frequency: 3 or more drinks per day Substance Use: substance use type: does not use Dietary Habits: caffeine: Yes Type: carbonated beverages, coffee, tea Review Of Systems (GEN) - Review of Systems Generalized/Overall Review: Present: Fatigue. Absent: Weakness, Chills, Fever EENTM: Present: No Symptoms Reported Respiratory: Present: Cough, Shortness of Breath, Wheezing. Absent: Orthopnea, Stridor Cardiac: Absent: Chest Pain, Edema, Palpitations Abdominal: Present: Abdominal Pain - LLQ. Absent: Nausea, Vomiting, Constipation Genitourinary: Present: No Symptoms Reported Musculoskeletal: Present: Back Pain - CHRONIC BACK. Absent: Joint Pain, Joint Swelling Neurological: Present: Anxiety - Chronic and stable, Depressed Skin: Present: No Symptoms Reported Endocrine: Present: No Symptoms Reported Immunizations: IMMUNIZATION HX Immunizations Up to Date Yes History of Influenza Vaccine More Information Required Hx Pneumococcal Vaccination More Information Required Allergies/Adverse Reactions: Allergies Allergy/AdvReac Type Severity Reaction Status Date / Time No Known Allergies Allergy Verified 07/23/19 13:04 Home Medications: HOME MEDICATIONS Umeclidinium Brm/Vilanterol Tr [Anoro Ellipta 62.5-25 Mcg INH] 1 ea INHALATION DAILY 09/06/18 [Last Taken 07/22/19] Albuterol Sulfate/Ipratropium [Duoneb 2.5-0.5MG/3ML Soln] 3 ml INHALATION QID PRN 03/13/19 [Last Taken 07/23/19] Albuterol Sulfate [Proair Hfa] 2 puff INHALATION Q4H PRN 04/24/19 [Last Taken 07/23/19] Hyoscyamine Sulfate [Hyoscyamine Sulfate Sr] 0.375 mg PO Q12H 05/17/19 [Last Taken 07/22/19] Acetaminophen with Codeine [Tylenol with Codeine #3 Tablet] 1 - 2 tab PO Q8H PRN 07/23/19 [Last Taken Unknown] Exam - Exam Vital Signs: Vital Signs - Last Taken Temp 37.1 C 07/23/19 14:58 Pulse 84 07/23/19 14:58 Resp 20 07/23/19 14:58 BP 127/71 07/23/19 14:58 Pulse Ox 95 07/23/19 14:58 Constitutional: Present: Alert, Oriented x3, Cooperative, Well developed, Mild distress ENT Exam: Present: hearing grossly normal Eye Exam: bilateral eye: normal inspection, EOMI Neck: Present: non-tender, full range of motion, supple, normal inspection Breasts: Present: Exam deferred Respiratory: Present: chest non-tender, accessory muscle use, rales - diffuse, wheezing - diffuse, expiration (prolonged). Absent: decreased breath sounds Cardiovascular/Chest: Present: normal peripheral pulses, regular rate, rhythm, no chest tenderness, no edema, no gallop, no JVD, no murmur Peripheral Pulses: dorsalis-pedis (R): 2+, dorsalis-pedis (L): 2+ Abdomen: Present: Normal bowel sounds, soft, tender - TTP of LLQ. Bandage in place. C/D/I., guarding /Rectal: Present: Exam deferred Extremity: Present: normal range of motion, non-tender, normal inspection, no pedal edema, no calf tenderness Skin Exam: Present: normal color, warm/dry Neurologic: Present: alert, oriented x 3 Appearance: Present: appropriate appearance, appropriate insight Eye contact: Present: cooperative, good eye contact Thoughts: Present: normal thought pattern Diagnostic Studies: Abnormal Lab Results 07/23/19 07/23/19 Range/Units 11:07 11:07 RBC 4.07 L (4.7-6.0) M/mm3 Hgb 13.4 L (13.5-18.0) gm/dL Hct 40.2 L (42.0-52.0) % MCH 32.9 H (27-31) pg Lymphocytes % 15.9 L (20-51) % Neutrophils # 7.1 H (1.3-6.0) K/mm3 Random Glucose 134 H (70-110) mg/dL Albumin 3.0 L (3.4-5.0) gm/dl Laboratory Results WBC 9.6 K/mm3 (4.0-10.5) 07/23/19 11:07 RBC 4.07 M/mm3 (4.7-6.0) L 07/23/19 11:07 Hgb 13.4 gm/dL (13.5-18.0) L 07/23/19 11:07 Hct 40.2 % (42.0-52.0) L 07/23/19 11:07 MCV 98.8 fl (78-100) 07/23/19 11:07 MCH 32.9 pg (27-31) H 07/23/19 11:07 MCHC 33.3 g/dl (32-36) 07/23/19 11:07 RDW 13.3 % (11.5-14.0) 07/23/19 11:07 Plt Count 237 K/mm3 (150-450) 07/23/19 11:07 MPV 9.0 fl (8-11.3) 07/23/19 11:07 Immature Gran % (Auto) 0.30 % (0.001-0.429) 07/23/19 11:07 Immature Gran # (Auto) 0.03 K/mm3 (0.000-0.0310) 07/23/19 11:07 Neutrophils % 74.1 % (42-75.0) 07/23/19 11:07 Lymphocytes % 15.9 % (20-51) L 07/23/19 11:07 Monocytes % 8.9 % (0.0-9) 07/23/19 11:07 Eosinophils % 0.5 % (0.0-3.0) 07/23/19 11:07 Basophils % 0.3 % (0.0-1.0) 07/23/19 11:07 Nucleated RBC % 0.0 k/mm3 (0-1) 07/23/19 11:07 Neutrophils # 7.1 K/mm3 (1.3-6.0) H 07/23/19 11:07 Lymphocytes # 1.53 k/mm3 (1.5-3.5) 07/23/19 11:07 Monocytes # 0.9 k/mm3 (0.0-1.0) 07/23/19 11:07 Eosinophils # 0.1 k/mm3 (0.0-0.7) 07/23/19 11:07 Absolute Basophils 0.0 k/mm3 (0.0-0.1) 07/23/19 11:07 D-Dimer 0.36 ug/mL (0.19-0.49) 07/23/19 11:07 Sodium 139 mmol/L (132-142) 07/23/19 11:07 Plasma Sodium 140 mmol/L (130-142) 07/23/19 11:07 Potassium 3.4 mmol/L (3.4-4.6) 07/23/19 11:07 Chloride 105 mmol/L (97-106) 07/23/19 11:07 Carbon Dioxide 29.2 mmol/L (24-32.6) 07/23/19 11:07 Anion Gap 8.2 mmol/L (6.8-13.8) 07/23/19 11:07 BUN 16 mg/dL (6-23) 07/23/19 11:07 Creatinine 0.93 mg/dL (0.4-1.4) 07/23/19 11:07 Est GFR (Non-Af Amer) 88 mL/min (60-130) 07/23/19 11:07 BUN/Creatinine Ratio 17.2 (9.0-21.6) 07/23/19 11:07 Random Glucose 134 mg/dL (70-110) H 07/23/19 11:07 Calcium 8.9 mg/dL (7.9-10.9) 07/23/19 11:07 Calcium Adj for Albumin 9.4 mg/dL (8.4-10.2) 07/23/19 11:07 Total Bilirubin 0.3 mg/dL (0.0-1.1) 07/23/19 11:07 AST 21 U/L (0-48) 07/23/19 11:07 ALT 34 U/L (19-67) 07/23/19 11:07 Alkaline Phosphatase 70 U/L (50-170) 07/23/19 11:07 Troponin I Less than 0.017 ng/mL (0.00-0.10) 07/23/19 11:07 Total Protein 6.3 gm/dL (6.2-8.2) 07/23/19 11:07 Albumin 3.0 gm/dl (3.4-5.0) L 07/23/19 11:07 Assessment/Plan - Narrative Narrative: Assessment/Plan 63 year old M admitted for Acute Exacerbation of COPD. Acute exacerbation of COPD - Prednisone 40 mg PO QAM X 4 Days - Duo-Neb Q4H - Budenoside Q12H - Perfomist: Q12H - Theophyline 300 mg PO BID - Levaquin 750 mg IV Q24H x 7 days, transition to PO in AM - Incentive Spirometry Q1-2H whilst awake - 3L Oxygen NC overnight, SpO2 > 88-92% Status post inguinal hernia repair, POD #1 - Bandage C/D/I - Pain well controlled Nicotine dependence - 21 mg Patch FEN: Regular diet DVT PPX: SCD's and Lovenox 40 mg SC to start tomorrow AM, once he is 24 hours s/p surgery CODE STATUS: FULL CODE Disposition: - Admit to Observation - Will re-evaluate tomorrow morning - Anticipate discharge within 24-48 hours - Assessment/Plan (1) COPD exacerbation Problem: Acute (2) Status post inguinal hernia repair Problem: Acute (3) Chronic back pain Problem: Chronic Qualifiers: Back pain location: low back pain Back pain laterality: unspecified Sciatica presence: without sciatica Qualified Code(s): M54.5 - Low back pain; G89.29 - Other chronic pain (4) Fibromyalgia Problem: Chronic (5) Anxiety and depression Problem: Chronic (6) Nicotine dependence Problem: Chronic Qualifiers: Nicotine product type: cigarettes Substance use status: unspecified nicotine-induced disorder Qualified Code(s): F17.219 - Nicotine dependence, cigarettes, with unspecified nicotine-induced disorders
[2019-07-23] MEDS ORDERED: LEVOFLOXACIN IN DEXTROSE 5 % 750 MG/150 ML BAG IV SCH (16:30)
[2019-07-23] MEDS ORDERED: NICOTINE 21 MG PATC TD SCH (16:45)
[2019-07-23] MEDS: ALBUTEROL SULFATE/IPRATROPIUM 3 ML NEBU IH SCH ×3 (17:24→22:10)
[2019-07-23] MEDS: FORMOTEROL FUMARATE 20 MCG/2 ML VIAL IH SCH ×2 (17:26→18:03)
[2019-07-23] MEDS ORDERED: ALPRAZolam 0.25 MG TABLET PO PRN (18:33)
[2019-07-23] MEDS ORDERED: BUDESONIDE 0.5 MG/2 ML VIAL.NEB IH SCH (19:00)
[2019-07-23] MEDS: THEOPHYLLINE ANHYDROUS 300 MG TAB.SR.12H PO SCH (20:25)
[2019-07-24] MEDS: ALBUTEROL SULFATE/IPRATROPIUM 3 ML NEBU IH SCH ×6 (02:14→22:00)
[2019-07-24 05:38] LABS: Hematocrit 41.1 % (42.0-52.0); Hemoglobin 14.4 gm/dL (13.5-18.0); Mean Cell Volume 98.8 fl (78-100); Mean Corpuscular Hemoglobin 34.6 pg (27-31); Mean Platelet Volume 9.9 fl (8-11.3); Neutrophil # 8.1 K/mm3 (1.3-6.0); Neutrophil % 82.6 % (42-75.0); Platelet Count 307 K/mm3 (150-450); Red Blood Count 4.16 M/mm3 (4.7-6.0); Red Cell Distribution Width 13.2 % (11.5-14.0); White Blood Count 9.8 K/mm3 (4.0-10.5)
[2019-07-24 05:53] LABS: Anion Gap 13.6 mmol/L (6.8-13.8); BUN/Creatinine Ratio 13.9 (9.0-21.6); Bilirubin, Total 0.3 mg/dL (0.0-1.1); Ca. Corrected For Albumin 9.9 mg/dL (8.4-10.2); Calcium * 9.4 mg/dL (7.9-10.9); Potassium 3.6 mmol/L (3.4-4.6); Total Protein 6.5 gm/dL (6.2-8.2)
[2019-07-24] MEDS: FORMOTEROL FUMARATE 20 MCG/2 ML VIAL IH SCH ×2 (06:06→18:07)
[2019-07-24] MEDS: ALPRAZolam 0.25 MG TABLET PO PRN (07:17)
[2019-07-24] MEDS ORDERED: LEVOFLOXACIN IN DEXTROSE 5 % 750 MG/150 ML BAG IV SCH (09:00)
[2019-07-24] MEDS ORDERED: predniSONE 20 MG TABLET PO SCH (09:00)
[2019-07-24] MEDS ORDERED: AZITHROMYCIN 250 MG TABLET PO SCH (09:00)
[2019-07-24] MEDS: THEOPHYLLINE ANHYDROUS 300 MG TAB.SR.12H PO SCH ×2 (11:24→22:09)
--- NOTE | 2019-07-24 12:35 | PN ---
Subjective - Date and Time Seen Date: 07/24/19 Time: 08:30 Subjective Narrative: Patient mildly improved overnight. No acute events. Physical exam patient is diffusely wheezing. Not stable for discharge. Discussed with patient will switch to IV steroids and continue breathing treatments and reevaluate in the morning. Objective - Review of Systems Generalized/Overall Review: Reports: Weakness. Denies: Chills, Fever EENTM: Reports: No Symptoms Reported Respiratory: Reports: Shortness of Breath, Wheezing Cardiac: Denies: Chest Pain Abdominal: Reports: Abdominal Pain - Left lower quadrant abdominal pain. Denies: Nausea, Vomiting Genitourinary Symptoms: Reports: No Symptoms Reported Musculoskeletal Complaints: Denies: Joint Pain, Back Pain, Joint Swelling Neurological: Reports: No Symptoms Reported Skin: Denies: Dryness Endocrine: Denies: No Symptoms Reported - Vitals Vitals: Last Vital Signs Temp 37.3 C 07/24/19 10:27 Pulse 80 07/24/19 10:27 Resp 20 07/24/19 10:27 BP 104/62 07/24/19 10:27 Pulse Ox 94 07/24/19 10:27 - Abnormal Lab Findings Abnormal Lab Findings: Abnormal Lab Results 07/24/19 07/24/19 Range/Units 04:30 04:30 RBC 4.16 L (4.7-6.0) M/mm3 Hct 41.1 L (42.0-52.0) % MCH 34.6 H (27-31) pg Immature Gran # (Auto) 0.04 H (0.000-0.0310) K/mm3 Neutrophils % 82.6 H (42-75.0) % Lymphocytes % 10.1 L (20-51) % Neutrophils # 8.1 H (1.3-6.0) K/mm3 Lymphocytes # 0.99 L (1.5-3.5) k/mm3 Random Glucose 162 H (70-110) mg/dL Albumin 3.0 L (3.4-5.0) gm/dl - EKG/Xray Findings EKG: NSR EKG read: Reviewed by me XRAY: chest Interpretation: Reviewed by me - Hyperinflation no acute cardiopulmonary process. - Exam Constitutional: Present: Alert, Oriented x3, Cooperative ENT Exam: Present: hearing grossly normal Neck: Present: full range of motion, supple, normal inspection Breasts: Present: Exam deferred Respiratory: Present: wheezing, expiration (prolonged) Cardiovascular/Chest: Present: normal peripheral pulses, regular rate, rhythm - Diffuse, no chest tenderness, no edema, no gallop, no JVD, no murmur Abdomen: Present: Normal bowel sounds, soft, nontender /Rectal: Present: Exam deferred Extremity: Present: normal range of motion, non-tender, normal inspection, no pedal edema, no calf tenderness Skin Exam: Present: normal color, warm/dry Neurologic: Present: alert, oriented x 3 Appearance: Present: appropriate appearance Eye contact: Present: cooperative, good eye contact Thoughts: Present: normal thought pattern Assessment/Plan Plan Narrative: Assessment/Plan 63 year old M admitted for Acute Exacerbation of COPD. Acute exacerbation of COPD -We will switch to IV methylprednisone day #2 of 5 - Duo-Neb Q4H - Budenoside Q12H - Perfomist: Q12H - Theophyline 300 mg PO BID - Levaquin 750 mg IV Q24H x 7 days, transition to PO in AM - Incentive Spirometry Q1-2H whilst awake - 3L Oxygen NC overnight, SpO2 > 88-92% Status post inguinal hernia repair, POD #2 - Bandage C/D/I - Pain well controlled -Patient doing Nicotine dependence - 21 mg Patch FEN: Regular diet DVT PPX: Start Lovenox 40 mg SC patient is now 24 hours status post surgery. CODE STATUS: FULL CODE Disposition: -Not stable for discharge - Will re-evaluate tomorrow morning - Anticipate discharge within 24 - Problems/Diagnosis (1) COPD exacerbation Problem: Acute (2) Status post inguinal hernia repair Problem: Acute (3) Chronic back pain Problem: Chronic Qualifiers: Back pain location: low back pain Back pain laterality: unspecified Sciatica presence: without sciatica Qualified Code(s): M54.5 - Low back pain; G89.29 - Other chronic pain (4) Fibromyalgia Problem: Chronic (5) Anxiety and depression Problem: Chronic (6) Nicotine dependence Problem: Chronic Qualifiers: Nicotine product type: cigarettes Substance use status: unspecified nicotine-induced disorder Qualified Code(s): F17.219 - Nicotine dependence, cigarettes, with unspecified nicotine-induced disorders
[2019-07-24] MEDS ORDERED: ENOXAPARIN SODIUM 40 MG/0.4 ML SYRG SC SCH (12:45)
[2019-07-24] MEDS ORDERED: METHYLPREDNISOLONE SOD SUCC/PF 40 MG/ML VIAL IV SCH (12:45)
[2019-07-25] MEDS: ALPRAZolam 0.25 MG TABLET PO PRN ×2 (01:53→01:54)
[2019-07-25] MEDS: ALBUTEROL SULFATE/IPRATROPIUM 3 ML NEBU IH SCH ×3 (02:05→10:06)
[2019-07-25] MEDS: FORMOTEROL FUMARATE 20 MCG/2 ML VIAL IH SCH (06:06)
[2019-07-25 06:07] LABS: Hematocrit 41.8 % (42.0-52.0); Hemoglobin 14.1 gm/dL (13.5-18.0); Mean Cell Volume 98.6 fl (78-100); Mean Corpuscular Hemoglobin 33.3 pg (27-31); Mean Corpuscular Hgb Conc 33.7 g/dl (32-36); Mean Platelet Volume 9.8 fl (8-11.3); Neutrophil # 6.7 K/mm3 (1.3-6.0); Neutrophil % 77.2 % (42-75.0); Platelet Count 294 K/mm3 (150-450); Red Blood Count 4.24 M/mm3 (4.7-6.0); Red Cell Distribution Width 12.9 % (11.5-14.0); White Blood Count 8.7 K/mm3 (4.0-10.5)
[2019-07-25 06:59] LABS: Albumin * 3.1 gm/dl (3.4-5.0); Anion Gap 12.2 mmol/L (6.8-13.8); BUN/Creatinine Ratio 16.9 (9.0-21.6); Bilirubin, Total 0.4 mg/dL (0.0-1.1); Ca. Corrected For Albumin 9.6 mg/dL (8.4-10.2); Calcium * 9.2 mg/dL (7.9-10.9); Carbon Dioxide 28.6 mmol/L (24-32.6); Potassium 3.8 mmol/L (3.4-4.6); Total Protein 6.6 gm/dL (6.2-8.2)
--- NOTE | 2019-07-25 07:15 | PN ---
Subjective - Date and Time Seen Date: 07/25/19 Time: 07:10 Subjective Narrative: No improvement overnight. Appears to be progressively getting worse. Advised will not discharge patient today. Objective - Review of Systems Generalized/Overall Review: Reports: Fatigue. Denies: Weakness EENTM: Reports: No Symptoms Reported Respiratory: Reports: Cough, Shortness of Breath, Wheezing Cardiac: Denies: Chest Pain Abdominal: Reports: Abdominal Pain - LLQ Genitourinary Symptoms: Reports: No Symptoms Reported Musculoskeletal Complaints: Denies: Joint Pain, Back Pain, Joint Swelling Neurological: Reports: No Symptoms Reported Skin: Denies: Dryness Endocrine: Reports: No Symptoms Reported - Vitals Vitals: Last Vital Signs Temp 36.6 C 07/25/19 06:50 Pulse 79 07/25/19 06:50 Resp 16 07/25/19 06:50 BP 144/87 07/25/19 06:50 Pulse Ox 96 07/25/19 06:50 - Abnormal Lab Findings Abnormal Lab Findings: Abnormal Lab Results 07/25/19 07/25/19 Range/Units 05:15 05:15 RBC 4.24 L (4.7-6.0) M/mm3 Hct 41.8 L (42.0-52.0) % MCH 33.3 H (27-31) pg Neutrophils % 77.2 H (42-75.0) % Lymphocytes % 15.0 L (20-51) % Neutrophils # 6.7 H (1.3-6.0) K/mm3 Lymphocytes # 1.30 L (1.5-3.5) k/mm3 Random Glucose 114 H (70-110) mg/dL Albumin 3.1 L (3.4-5.0) gm/dl - Exam Constitutional: Present: Alert, Oriented x3, Cooperative, Mild distress ENT Exam: Present: hearing grossly normal Neck: Present: full range of motion, supple, normal inspection Respiratory: Present: rales - DIFFUSE, wheezing - DIFFUSE Cardiovascular/Chest: Present: normal peripheral pulses, regular rate, rhythm, no chest tenderness, no edema, no gallop, no JVD, no murmur Abdomen: Present: Normal bowel sounds, soft, nontender Extremity: Present: normal range of motion, non-tender, normal inspection, no pedal edema Skin Exam: Present: normal color, warm/dry Lymphatic: Present: no adenopathy Neurologic: Present: alert, oriented x 3 Appearance: Present: appropriate appearance Eye contact: Present: cooperative Thoughts: Present: normal thought pattern Assessment/Plan Plan Narrative: ssessment/Plan 63 year old M admitted for acute respiratory failure most likely secondary to Acute Exacerbation of COPD. Acute exacerbation of COPD - Worsening cocnerning for acute respiratory failure. - STAT CXR and ABG pending - Eval for oxygen need during the day - Increase IV methylprednisone 60 mg BID day #3 of 5 - Duo-Neb Q4H - Budenoside Q12H - Perfomist: Q12H - Theophyline 300 mg PO BID - Levaquin 750 mg IV Q24H x 7 days, transition to PO in AM - Incentive Spirometry Q1-2H whilst awake - 3L Oxygen NC overnight, SpO2 > 88-92% Status post inguinal hernia repair, POD #3 - Bandage C/D/I - Pain well controlled - Patient doing Nicotine dependence - 21 mg Patch FEN: Regular diet DVT PPX: Start Lovenox 40 mg SC patient is now 24 hours status post surgery. CODE STATUS: FULL CODE Disposition: -Not stable for discharge - Will re-evaluate tomorrow morning - Anticipate discharge within 24- 4 hours - Problems/Diagnosis (1) Acute respiratory failure Problem: Resolved Qualifiers: Respiratory failure complication: unspecified whether with hypoxia or hypercapnia Qualified Code(s): J96.00 - Acute respiratory failure, unspecified whether with hypoxia or hypercapnia (2) COPD exacerbation Problem: Acute (3) Status post inguinal hernia repair Problem: Acute (4) Chronic back pain Problem: Chronic Qualifiers: Back pain location: low back pain Back pain laterality: unspecified Sciatica presence: without sciatica Qualified Code(s): M54.5 - Low back pain; G89.29 - Other chronic pain (5) Fibromyalgia Problem: Chronic (6) Anxiety and depression Problem: Chronic (7) Nicotine dependence Problem: Chronic Qualifiers: Nicotine product type: cigarettes Substance use status: unspecified nicotine-induced disorder Qualified Code(s): F17.219 - Nicotine dependence, cigarettes, with unspecified nicotine-induced disorders
[2019-07-25] MEDS: THEOPHYLLINE ANHYDROUS 300 MG TAB.SR.12H PO SCH (08:00)
--- NOTE | 2019-07-25 08:51 | DS ---
(1) Acute respiratory failure Problem: Resolved Qualifiers: Respiratory failure complication: unspecified whether with hypoxia or hypercapnia Qualified Code(s): J96.00 - Acute respiratory failure, unspecified whether with hypoxia or hypercapnia (2) COPD exacerbation Problem: Acute (3) Status post inguinal hernia repair Problem: Acute (4) Chronic back pain Problem: Chronic Qualifiers: Back pain location: low back pain Back pain laterality: unspecified Sciatica presence: without sciatica Qualified Code(s): M54.5 - Low back pain; G89.29 - Other chronic pain (5) Fibromyalgia Problem: Chronic (6) Anxiety and depression Problem: Chronic (7) Nicotine dependence Problem: Chronic Qualifiers: Nicotine product type: cigarettes Substance use status: unspecified nicotine-induced disorder Qualified Code(s): F17.219 - Nicotine dependence, cigarettes, with unspecified nicotine-induced disorders Date of Discharge:: 07/25/19 Hospital Course: 63 year old M with PMHX of oxygen dependent (overnight 3L) COPD, Chronic back pain, MDD, JANETTE, Fibromyalgia and nicotine dependence is admitted to [facility] for Acute exacerbation of COPD. PCP: Uvaldo Martin. Patient is s/p left inguinal hernia repair, POD #[address] Canas of [facility]. Patient states since the surgery he has become progressively SOB and not responsive to usual breathing treatments at home. On arrival to the ER patient is mildly hypertensive and tachypneic. CXR, EKG and remaining workup is unremarkable. Received Duo-neb, azithromycin 500 mg po x 1, Rocephin IV 1 gram x 1 and Methylprednisone IV 125 mg X 1. Admitted for acute exacerbation of COPD. Treated with neb treatments, antibiotics, and iv prednisone and responded well. Will discharge to day. Procedures Performed: none Care Plan Goals: complete antibiotic course levofloxacin 750 mg po x 5 days Complete prednisone 40 mg PO QAM x 3 Days Plan of Treatment: compliance with COPD treatments Assessment: Acute COPD exacebation. Results and Findings: Pending Mircobiology Results 07/23/19 11:23 Blood Blood Culture - Preliminary NO GROWTH 24 HOURS 07/23/19 11:07 Blood Blood Culture - Preliminary NO GROWTH 24 HOURS Lab Pending Results 07/23/19 11:07: WBC 9.6, RBC 4.07 L, Hgb 13.4 L, Hct 40.2 L, MCV 98.8, MCH 32.9 H, MCHC 33.3, RDW 13.3, Plt Count 237, MPV 9.0, Immature Gran % (Auto) 0.30, Immature Gran # (Auto) 0.03, Neutrophils % 74.1, Lymphocytes % 15.9 L, Monocytes % 8.9, Eosinophils % 0.5, Basophils % 0.3, Nucleated RBC % 0.0, Neutrophils # 7.1 H, Lymphocytes # 1.53, Monocytes # 0.9, Eosinophils # 0.1, Absolute Basophils 0.0 07/23/19 11:07: Sodium 139, Plasma Sodium 140, Potassium 3.4, Chloride 105, Carbon Dioxide 29.2, Anion Gap 8.2, BUN 16, Creatinine 0.93, Est GFR (Non-Af Amer) 88, BUN/Creatinine Ratio 17.2, Random Glucose 134 H, Calcium 8.9, Calcium Adj for Albumin 9.4, Total Bilirubin 0.3, AST 21, ALT 34, Alkaline Phosphatase 70, Troponin I Less than 0.017, Total Protein 6.3, Albumin 3.0 L 07/23/19 11:07: D-Dimer 0.36 07/24/19 04:30: WBC 9.8, RBC 4.16 L, Hgb 14.4, Hct 41.1 L, MCV 98.8, MCH 34.6 H, MCHC 35.0, RDW 13.2, Plt Count 307, MPV 9.9, Immature Gran % (Auto) 0.40, Immature Gran # (Auto) 0.04 H, Neutrophils % 82.6 H, Lymphocytes % 10.1 L, Monocytes % 6.8, Eosinophils % 0.0, Basophils % 0.1, Nucleated RBC % 0.0, Neutrophils # 8.1 H, Lymphocytes # 0.99 L, Monocytes # 0.7, Eosinophils # 0.0, Absolute Basophils 0.0 07/24/19 04:30: Sodium 137, Plasma Sodium 138, Potassium 3.6, Chloride 102, Carbon Dioxide 25.0, Anion Gap 13.6, BUN 14, Creatinine 1.01, Est GFR (Non-Af Amer) 80, BUN/Creatinine Ratio 13.9, Random Glucose 162 H, Calcium 9.4, Calcium Adj for Albumin 9.9, Total Bilirubin 0.3, AST 18, ALT 33, Alkaline Phosphatase 64, Total Protein 6.5, Albumin 3.0 L 07/25/19 05:15: WBC 8.7, RBC 4.24 L, Hgb 14.1, Hct 41.8 L, MCV 98.6, MCH 33.3 H, MCHC 33.7, RDW 12.9, Plt Count 294, MPV 9.8, Immature Gran % (Auto) 0.20, Immature Gran # (Auto) 0.02, Neutrophils % 77.2 H, Lymphocytes % 15.0 L, Monocytes % 7.5, Eosinophils % 0.0, Basophils % 0.1, Nucleated RBC % 0.0, Neutrophils # 6.7 H, Lymphocytes # 1.30 L, Monocytes # 0.7, Eosinophils # 0.0, Absolute Basophils 0.0 07/25/19 05:15: Sodium 139, Plasma Sodium 139, Potassium 3.8, Chloride 102, Carbon Dioxide 28.6, Anion Gap 12.2, BUN 15, Creatinine 0.89, Est GFR (Non-Af Amer) 92, BUN/Creatinine Ratio 16.9, Random Glucose 114 H, Calcium 9.2, Calcium Adj for Albumin 9.6, Total Bilirubin 0.4, AST 21, ALT 42, Alkaline Phosphatase 67, Total Protein 6.6, Albumin 3.1 L 07/25/19 06:30: B-Natriuretic Peptide 179 H 07/25/19 08:08: pCO2 40.7, pO2 60.9 L, HCO3 26.5, Total CO2 27.7 H, Base Excess 2.0, ABG pH 7.43, ABG O2 Sat (Measured) 92.0 L Discharge Location: Home Disposition: Home self-care Condition: Stable Discharge Activity: Activity as tolerated Discharge Diet: General/regular food Referrals: Uvaldo Patel MD [Primary Care Provider] - One Week (Hospital follow up for acute copd exacerbation) Problem Oriented Discharge Instructions to Patient/Family: Chronic Obstructive Pulmonary Disease Exacerbation, [id number] Complete Home Medications List: Complete Home Medication List: Umeclidinium Brm/Vilanterol Tr [Anoro Ellipta 62.5-25 Mcg INH] 1 ea INHALATION DAILY 09/06/18 Albuterol Sulfate/Ipratropium [Duoneb 2.5-0.5MG/3ML Soln] 3 ml INHALATION QID PRN 03/13/19 Albuterol Sulfate [Proair Hfa] 2 puff INHALATION Q4H PRN 04/24/19 Hyoscyamine Sulfate [Hyoscyamine Sulfate Sr] 0.375 mg PO Q12H 05/17/19 Acetaminophen with Codeine [Tylenol with Codeine #3 Tablet] 1 - 2 tab PO Q8H PRN 07/23/19 Levofloxacin [Levaquin] 750 mg PO DAILY 5 Days #5 tab 07/25/19 predniSONE [Prednisone] 2 tab PO QAM 3 Days #6 tab 07/25/19
[2019-07-25 11:46] VITALS: BP 127/89
== END 2019-07-25 10:30 | disposition home or self-care (01) ==
LOC: MS 10:58 → ER 10:58 → MS 12:50
PROVIDERS: ADMIT Family Medicine; ATTEND Family Medicine
CPT/HCPCS: 36415; 36600; 71020; 71046; 74019; 74020; 80053; 82803; 83519; 83880; 84484; 85025; 85379; 87040; 93005; 94640; 94664; 94760; 96365; 96372; 96375; 99285; G0378